=== PATIENT | female | born 1955 | race Caucasian/White ===

== ENCOUNTER 2019-01-18 16:03 | Outpatient (REF) | payer MEDICARE, OTHER, SELFPAY ==
--- NOTE | 2019-01-18 12:00 | PAPFT_PTH ---
PATIENT: Sena Marie LOC: [facility] U#:[id number] AGE/SX: 63/F ROOM: RE01/18/[address]: Tonya Hernandez MD : 1955 BED: DIS: 01/18/2019 SPEC #: [id number] RECD: 01/19/19 12:39 STATUS: SORAYA REQ #: [id number] JEANNE: 01/18/19 12:[address]: Tonya Hernandez DEPT: [facility] Cytology RECD BY: Julia Tran Tissues: 1 - CX/ENDOCX FOR PAP SMEARS Procedures: PAP THIN PREP/UVM Screening HPV DNA PROBE Comments: [id number]
== END 2019-01-18 16:23 ==
LOC: LBN 16:03
PROVIDERS: PCP Family Medicine; Visit Provider Family Medicine
DX: Z12.4 Encounter for screening for malignant neoplasm of cervix (principal); Z11.51 Encounter for screening for human papillomavirus (HPV)
CPT/HCPCS: 88142; 87624

== ENCOUNTER 2019-01-27 02:38 | Outpatient (CLI) | payer MEDICARE, OTHER, SELFPAY ==
[2019-01-27 10:08] LABS: ALT 21 U/L (12-78); AST 18 U/L (15-37); Albumin 3.5 g/dL (3.4-5.0); Alkaline Phosphatase 122 U/L (46-116); BUN 13 mg/dL (7-18); Bilirubin, Total 0.6 mg/dL (0.2-1.0); CREATININE 0.85 mg/dL (0.55-1.02); Calcium 8.8 mg/dL (8.5-10.1); Calculated LDL 143; Chloride 105 mmol/L (98-107); Cholesterol 208 mg/dL (50-200); Glucose 95 mg/dL (70-100); HDL Cholesterol 50 mg/dL (40-60); Potassium 3.7 mmol/L (3.5-5.1); Sodium 142 mmol/L (136-145); Total Protein 6.8 g/dL (6.4-8.2); Triglyceride 77 mg/dL (30-150)
== END 2019-01-27 02:58 ==
PROVIDERS: PCP Family Medicine; Visit Provider Family Medicine
DX: R10.9 Unspecified abdominal pain (principal); R74.8 Abnormal levels of other serum enzymes
CPT/HCPCS: 36415; 80053; 80061; 83721

== ENCOUNTER 2019-01-30 01:39 | Outpatient (CLI) | payer MEDICARE, OTHER, SELFPAY ==
--- NOTE | 2019-01-30 16:30 | DI.MAMMO_ITS ---
SYMPTOM/DIAGNOSIS: SCREENING, Z12.31 MAMMOGRAMS: Mammograms were interpreted according to the usual protocol including computer analysis with CAD system, tomosynthesis and C view imaging. Comparison is made with exams from [id number]. The breasts are composed of fatty density tissue. Breast density, Category A. No suspicious masses or suspicious microcalcifications are seen. There has been no significant change. IMPRESSION: Category 1, negative mammogram. Yearly screening mammography is recommended. [facility] ASSESSMENT OF FINDINGS: Negative. Category 1. Patient will receive a letter notifying them of these results. BI-RAD category A. The breasts are almost entirely fatty.
== END 2019-01-30 01:59 ==
PROVIDERS: PCP Family Medicine; Visit Provider Family Medicine
DX: Z12.31 Encounter for screening mammogram for malignant neoplasm of breast (principal)
CPT/HCPCS: 77063; 77067

== ENCOUNTER 2019-02-27 00:43 | Outpatient (CLI) | payer MEDICARE, OTHER, SELFPAY ==
--- NOTE | 2019-02-27 07:16 | DI.US_ITS ---
SYMPTOMS/DIAGNOSIS: RUQ PAIN/POST PRANDIAL, NO RESPONSE TO PPI, R10.11 ABDOMINAL ULTRASOUND: Routine examination was performed. The aorta is of normal caliber. There inferior vena cava is unremarkable. The liver measures 16 cm in length. No hepatic masses are present. There are multiple mobile stones seen within the gallbladder. No gallbladder wall thickening or pericholecystic fluid is seen. There is a positive sonographic Haynes's sign. The common duct is within normal limits at .5 cm. The pancreas, spleen and kidneys are unremarkable. IMPRESSION: 1. Cholelithiasis. No biliary ductal dilatation. 2. Positive sonographic Haynes's sign.
== END 2019-02-27 01:03 ==
PROVIDERS: PCP Family Medicine; Visit Provider Family Medicine
DX: R10.11 Right upper quadrant pain (principal); K80.20 Calculus of gallbladder without cholecystitis without obstruction; R19.8 Other specified symptoms and signs involving the digestive system and abdomen
CPT/HCPCS: 76700

== ENCOUNTER → 2019-03-20 11:14 | Outpatient (BNVA) | payer MEDICARE, OTHER, SELFPAY | PROVIDERS: PCP Family Medicine; Referring Provider Family Medicine; Visit Provider Surgery | DX: K80.20 Calculus of gallbladder without cholecystitis without obstruction (principal) | CPT/HCPCS: 99204; 99214 ==

== ENCOUNTER 2019-04-04 06:14 | Day surgery (SDC) | payer MEDICARE, OTHER, SELFPAY ==
[2019-04-04] VITALS (9 sets, daily range): BP systolic 94–139; BP diastolic 45–82; PULSE 48–64; RESP 15–22; TEMP 36.1–36.6; O2SAT 93–97
[2019-04-04] MEDS: Lactated Ringers 1,000 ML 80 ML IV (06:36)
[2019-04-04] MEDS: ceFAZolin 2 GM/50 ML BAG IVPB (07:25)
--- NOTE | 2019-04-04 07:28 | W.PM.DSUDISC ---
Discharge Plan Disposition Patient Disposition: HOME Condition: Good Discharge Details Reason For Visit: Laparoscopic cholecystectomy Attending Provider: Radha Pulido Primary Care Provider: Tonya Hernandez Discharge Instructions Additional Instructions: May remove top dressing tomorrow and shower. The water can run over the steri strips. Call for any issues with increased pain, nausea, incision concerns Referrals: Radha Pulido MD [ [facility] STAFF PHYSICIAN] - (Return for postop appointment in 10-14 days) Activity:: Do not lift more than 15 pounds for two weeks Remove Dressings/Wound Care:: 24 hours Shower/Bathe:: 24 hours Diet:: Low fat for two weeks Discharge Orders Discharge Orders: Discharge Order (Routine); Ordered 04/04/19 Ordered By: Radha Pulido DS: Diagnosis Discharge Diagnosis (1) Cholelithiasis: Status: Acute (2) Status post laparoscopic cholecystectomy:
--- NOTE | 2019-04-04 08:00 | GB_PTH ---
PATIENT: Sena Marie LOC: [facility] U#:[id number] AGE/SX: 63/F ROOM: RE04/04/[address]: Radha Pulido MD : 1955 BED: DIS: 04/04/2019 SPEC #: [id number] RECD: 04/04/19 12:44 STATUS: SORAYA REQ #: [id number] JEANNE: 04/04/19 08:[address]: Radha Pulido DEPT: Surgical Specimen RECD BY: Julia Tran ENTERED: 04/04/19 12:44 SP TYPE: GB OTHR DR: Tonya Hernandez MD Tissues: 1 - GALLBLADDER Procedures: GROSS AND MICRO LEVEL 3 Comments: [id number]
[2019-04-04] MEDS: Bupivacaine 0.5% Pres-Free 30 ML VIAL (08:10)
[2019-04-04] MEDS: Ketorolac 15 MG/ML VIAL IVP (08:50)
[2019-04-04] MEDS: Droperidol 5 MG/2 ML VIAL 0.625 MG IVP (09:16)
--- NOTE | 2019-04-04 10:52 | ROE_ITS ---
REPORT OF OPERATIVE PROCEDURE DATE OF PROCEDURE April 04, 2019 PREOPERATIVE DIAGNOSIS Symptomatic cholelithiasis. POSTOPERATIVE DIAGNOSIS Symptomatic cholelithiasis. PROCEDURE Laparoscopic cholecystectomy. SURGEON Radha Pulido M.D. ANESTHESIA Local and General. INDICATIONS This is a 63-year-old woman who presented with right upper quadrant pain triggered by eating fatty fo ods. She had an ultrasound that showed gallstones. PROCEDURE DESCRIPTION The patient was placed supine on the operating table and under general anesthetic, she was prepped an d draped sterilely. A 5-mm incision was made just below and to the left of the umbilicus after injec ting local anesthetic. The abdomen entered under direct visualization using the 5-mm scope. A CO2 pne umoperitoneum was begun. She was placed in reverse Trendelenburg position. The epigastric and two lateral ports were placed after injecting local anesthetic under direct visual ization. The gallbladder was not acutely inflamed, but did have adhesions of omentum and duodenum to it. The fundus was pulled up over the liver and the adhesions carefully taken down with hook cautery. The infundibulum was retracted laterally and the peritoneum overlying the triangle Calot was dissect ed free with harrell cautery to reveal the cystic duct and artery. These were visualized going directly onto the gallbladder. The cystic duct was not dilated. It was palpated and no stones were noted withi n it. The common bile duct was visualized and avoided. The cystic duct was clipped twice distally an d once proximally. The cystic artery clipped twice proximally, once distally and then the structures divided. The gallbladder was dissected off the liver bed with hook cautery. A few small vascular bran ches in the gallbladder fossa were clipped. Once the gallbladder was removed, the operative site was inspected and it showed no bleeding or bile leak. The gallbladder was removed through the epigastric incision in an EndoCatch bag. The ports were removed under direct visualization with no evidence of bleeding. The CO2 was released from the umbilical port, which was then removed. The skin and all por t sites were closed with a #4-0 Monocryl subcuticular stitch. She tolerated the procedure well and wa s stable to recovery. CC: Tonya Hernandez M.D.
== END 2019-04-04 11:00 | disposition home or self-care (01) ==
PROVIDERS: PCP Family Medicine; Visit Provider Surgery
PROC: 0FT44ZZ Resection of Gallbladder, Percutaneous Endoscopic Approach (ICD-10-PCS; CPT 47562; principal; 2019-04-04 07:30)
DX: K80.10 Calculus of gallbladder with chronic cholecystitis without obstruction (principal); K82.8 Other specified diseases of gallbladder
CPT/HCPCS: 47562; 88304; J0690; J1100; J1790; J1885; J2405

== ENCOUNTER → 2019-04-13 08:48 | Outpatient (BNVA) | payer MEDICARE, OTHER, SELFPAY | PROVIDERS: PCP Family Medicine; Referring Provider Family Medicine; Visit Provider Surgery | DX: Z48.815 Encounter for surgical aftercare following surgery on the digestive system (principal); Z90.49 Acquired absence of other specified parts of digestive tract ==

== ENCOUNTER 2021-06-24 00:50 | Outpatient (CLI) | payer MEDICARE, OTHER, SELFPAY ==
--- NOTE | 2021-06-24 11:42 | DI.MAMMO_ITS ---
Exam(s) MAMMO SCREENING EXAM: MAMMO SCREENING CLINICAL HISTORY: screening,Z12.39 TECHNIQUE: Bilateral full field digital CC and MLO mammographic images were obtained with 3D tomosyn thesis and utilizing computer aided detection (CAD). COMPARISON: Available for comparison. FINDINGS: Masses/Architectural Distortion: None seen. Microcalcifications: No suspicious pleomorphic-type are seen. Skin Thickening/Nipple Retraction: None. IMPRESSION: 1. No significant interval change with no specific features of malignancy noted. 2. Unless there is more urgent need, screening mammography is recommended, as per [place] [employer] guidelines. BI-RADS Category 1 - Negative Breast Density - Category A - Almost entirely fatty Breast density category C or D implies that the patient has dense breast tissue. Dense breast tissue is very common and is not abnormal but dense breast tissue can make it harder to find cancer on a ma mmogram. Also, dense breast tissue may increase their breast cancer risk. This information about the result of the mammogram report was provided to the patient to raise their awareness. Use this report when you speak with the patient about their risks for breast cancer, which includes their family hist ory. At that time, you may recommend for more screening tests (Ultrasound or MRI) as they might be us eful based on their risk. A negative radiographic report should not delay biopsy if a dominant or clinically suspicious mass is present. Up to ten percent of cancers are not identified on mammography. A negative report may reinforce clinical impression. Adenosis and dense breasts may obscure an underlying neoplasm. False positive reports average 6 to 10%. Patient will receive a letter notifying them of these results.
== END 2021-06-24 01:10 ==
PROVIDERS: PCP Family Medicine; Visit Provider Family Medicine
DX: Z12.31 Encounter for screening mammogram for malignant neoplasm of breast (principal)
CPT/HCPCS: 77063; 77067

== ENCOUNTER 2022-06-15 03:22 | Outpatient (CLI) | payer MEDICARE, SELFPAY ==
[2022-06-15 09:17] LABS: Hemoglobin A1C 5.3 % (<5.7)
[2022-06-15 10:49] LABS: Anion Gap 8.4 mmol/L (3-11); BUN 15 mg/dL (7-18); CO2 27.6 mmol/L (21.0-32.0); CREATININE 0.9 mg/dL (0.55-1.02); Calcium 8.9 mg/dL (8.5-10.1); Calculated LDL 101 mg/dL (<100); Chloride 106 mmol/L (98-107); Cholesterol 164 mg/dL (<200); Estimated GFR 69.64 (mL/min/1.73m2); Glucose 101 mg/dL (74-106); HDL Cholesterol 52 mg/dL (40-60); Sodium 142 mmol/L (136-145); TSH (W/Ref FT4) 3.72 uIU/mL (0.36-3.74); Triglyceride 55 mg/dL (<150)
== END 2022-06-15 03:23 | disposition home or self-care (01) ==
LOC: LBO 03:22
PROVIDERS: PCP Nurse Practitioner Family; Visit Provider Nurse Practitioner Family
DX: E78.5 Hyperlipidemia, unspecified (principal); Z86.32 Personal history of gestational diabetes
CPT/HCPCS: 36415; 80048; 80061; 83036; 84443

== ENCOUNTER 2022-12-23 12:28 | Outpatient (CLI) | payer MEDICARE, SELFPAY ==
--- NOTE | 2022-12-23 | DI.RAD_ITS ---
Exam(s) XR CHEST 2V PA LATERAL EXAM: XR CHEST 2V PA LATERAL CLINICAL HISTORY: COUGH, R05.8, X 1 WEEK, ? RHONCOROUS SOUNDS IN RLL POSTERIOR, ? PNA TECHNIQUE: 2D digital imaging was performed. COMPARISON: CR RIGHT RIBS TO INCLUDE CXR from 04/24/2015 FINDINGS: HEART: Normal size. Aorta: Not dilated. PULMONARY VASCULATURE: Normal. LUNGS: Clear. PLEURAL SPACE: No pleural effusion or pneumothorax. BONE:Old right rib fractures. Degenerative changes in the spine. Mild scoliosis. IMPRESSION: No acute abnormality. DATA REPOSITORY: RADIATION DOSE DELIVERED:
== END 2022-12-23 12:48 ==
LOC: DI 12:28
PROVIDERS: PCP Nurse Practitioner Family; Visit Provider Physician Assistant Medical
DX: R05.3 Chronic cough (principal)
CPT/HCPCS: 71046

== ENCOUNTER → 2023-07-05 02:55 | Outpatient (CLI) | payer MEDICARE, SELFPAY ==
--- NOTE | 2023-07-05 08:15 | DI.DEXA_ITS ---
Exam(s) XR DEXA BONE DENSITY W/WO DESTINEE EXAM: XR DEXA BONE DENSITY W/WO DESTINEE CLINICAL HISTORY: osteoporosis screening, Z78.0, POSTMENOPAUSAL STATUS TECHNIQUE: Hologic Horizon C densitometer analysis of left hip, lumbar spine and left forearm. Lat eral survey image of the thoracic and lumbar spine. COMPARISON: No exams were available for comparison FINDINGS: Lateral view of the thoracic and lumbar spine shows no evidence of compression fractures. Degenera tive changes with prominent endplate osteophytes noted. Mild scoliosis. These findings could elevat e the bone mineral density measurements. Bone mineral density measurements of the lumbar spine correspond to a total T-score of 2.2, in the no rmal range. Bone mineral density measurements of the left hip correspond to a total T-score of 1.4 . The femoral neck T-score is 2.1, in the normal range.. Theleft forearm bone mineral density measurements correspond to a T-score of the distal 3rd of -0.7, in the normal range.. IMPRESSION: Normal bone mineral density.
--- NOTE | 2023-07-05 12:30 | DI.MAMMO_ITS ---
Exam(s) MAMMO SCREENING EXAM: MAMMO SCREENING CLINICAL HISTORY: screening, Z12.39 TECHNIQUE: Mammograms were interpreted according to the usual protocol including computer analysis w [employer] CAD system, tomosynthesis and C-view imaging. COMPARISON: 2014 through 2020 FINDINGS: The breasts are composed of mainly fatty density , Breast Density category A. No suspicious masses or suspicious microcalcifications are seen. No skin thickening or abnormal axillary lymph nodes are seen. There has been no significant change from prior exams. IMPRESSION: BI-RADS Category 1, Negative mammogram Yearly screening mammography is recommended. Breast Density - Category A, fatty density. A negative radiographic report should not delay biopsy if a dominant or clinically suspicious mass is present. Up to ten percent of cancers are not identified on mammography. A negative report may reinforce clinical impression. Adenosis and dense breasts may obscure an underlying neoplasm. False positive reports average 6 to 10%. Patient will receive a letter notifying them of these results.
== END ==
PROVIDERS: PCP Nurse Practitioner Family; Visit Provider Nurse Practitioner Family
DX: Z12.31 Encounter for screening mammogram for malignant neoplasm of breast (principal); Z78.0 Asymptomatic menopausal state; Z13.820 Encounter for screening for osteoporosis
CPT/HCPCS: 77063; 77067; 77080

== ENCOUNTER 2023-07-26 11:12 | Outpatient (CLI) | payer MEDICARE, SELFPAY ==
--- NOTE | 2023-07-26 11:00 | RT.EKG_ITS ---
APPROVED REPORT Exam: Resting ECG Reason for Exam: MA Patient Location: O HR:75 bpm ECG Measurements Heart Rate 75 AXIS GA 169 P 15 QRSd 88 QRS 10 QT 389 T 17 QTc 435 Conclusion Incomplete analysis due to missing data in precordial lead(s) Sinus rhythm...normal P axis, V-rate 50- 99 Missing lead(s): V3 Otherwise normal ECG
== END 2023-07-26 11:13 | disposition home or self-care (01) ==
LOC: DI.CM 11:12
PROVIDERS: PCP Nurse Practitioner Family; Visit Provider Nurse Practitioner Family
DX: R06.09 Other forms of dyspnea (principal)
CPT/HCPCS: 93010

== ENCOUNTER 2023-07-28 04:48 | Outpatient (CLI) | payer MEDICARE, SELFPAY ==
[2023-07-28 13:06] LABS: Abs Immature Grans 0.01 10^3/uL (0.0-0.06); Absolute Basophil Count 0.03 10^3/uL (0.0-0.2); Absolute Eosinophil Count 0.15 10^3/uL (0.0-0.7); Absolute Lymphocyte Count 0.82 10^3/uL (1.2-3.4); Absolute Monocyte Count 0.41 10^3/uL (0.1-0.8); Absolute Neutrophil Count 2.94 10^3/uL (1.2-6.7); Basophils % 0.7; Eosinophils % 3.4; Immature Grans % 0.2; Lymphocytes % 18.8; MCH 16.6 pg (27.0-33.0); MCHC 25.6 % (32.0-36.0); MCV 65 fL (80-95); MPV 9.5 fL (8.0-11.0); Monocytes % 9.4; Neutrophils % 67.5; Platelet Count 362 10^3/uL (130-400); RBC 3.19 10^6/uL (3.93-5.22); RDW 19.6 % (11.7-14.6); RDW-SD 45.5 fL; WBC 4.36 10^3/uL (4.4-10.8)
[2023-07-28 13:41] LABS: HCT 20.7 % (36.0-46.0); HGB 5.3 g/dL (11.2-15.7)
[2023-07-28 13:43] LABS: Diff Comment Diff Reviewed; Hypochromasia 3+; Microcytosis 3+
[2023-07-28 14:00] LABS: ALT 14 U/L (14-59); AST 9 U/L (15-37); Albumin 3.4 g/dL (3.4-5.0); Alkaline Phosphatase 103 U/L (46-116); Anion Gap 9.8 mmol/L (3-11); BUN 19 mg/dL (7-18); Bilirubin, Total 0.4 mg/dL (0.2-1.0); CO2 25.2 mmol/L (21.0-32.0); CREATININE 0.9 mg/dL (0.55-1.02); Calcium 8.9 mg/dL (8.5-10.1); Chloride 102 mmol/L (98-107); Glucose 119 mg/dL (74-106); Potassium 4.1 mmol/L (3.5-5.1); Sodium 137 mmol/L (136-145); TSH (W/Ref FT4) 2.46 uIU/mL (0.36-3.74); Total Protein 7.1 g/dL (6.4-8.2)
[2023-07-28 15:49] LABS: Lab Add On Test DONE
[2023-07-28 16:04] LABS: Reticulocyte 1.5 % (0.5-2.4)
[2023-07-28 16:12] LABS: Iron 11 ug/dL (50-170); Total Iron Binding Capacity 438 ug/dL (250-450); Transferrin Sat 3 % (15-50)
[2023-07-28 16:40] LABS: Ferritin 10 ng/mL (8-252); Folate 16.4 ng/mL (8.6-20.0); Vitamin B12 151 pg/mL (193-986)
== END 2023-07-28 04:49 | disposition home or self-care (01) ==
LOC: LBO 04:48
PROVIDERS: PCP Nurse Practitioner Family; Visit Provider Nurse Practitioner Family
DX: R06.09 Other forms of dyspnea (principal); D64.9 Anemia, unspecified
CPT/HCPCS: 36415; 80053; 82607; 82728; 82746; 83540; 83550; 84443; 85025; 85045

== ENCOUNTER 2023-07-28 14:06 | Emergency (ER) | payer MEDICARE, SELFPAY ==
[2023-07-28] VITALS (51 sets, daily range): BP systolic 138–171; BP diastolic 45–63; PULSE 71–95; RESP 14–27; TEMP 36.6–37; O2SAT 75–100
--- NOTE | 2023-07-28 15:07 | W.ED.GENAD ---
Discharge Plan Disposition Patient Disposition: Home Condition: Stable Discharge Details Clinical Impression: Symptomatic anemia Primary Care Provider: Jocelyn Hodge ED Provider: Kaleb Waggoners and New Rx's Prescriptions: Continued ICaps AREDS2 250 mg-200 unit -12.5 mg-1 mg capsule 1 cap PO BID Discharge Instructions Additional Instructions: You were seen in the ED for symptomatic anemia and received 2 units of blood which should improve your symptoms. You will need to follow-up with primary care to further evaluate the reason why you are anemic. Please contact them in the morning. Return to the ED if you develop any further episodes of syncope, worsening shortness of breath, chest pain or pressure, black or bloody stool. Referrals: Jocelyn Hodge, [employer]ILER[employer]IC [Primary Care Provider] - Medical Decision Making Patient presenting to ED with symptomatic anemia found after visiting PCP earlier this week because of increasing dyspnea on exertion, lightheadedness, syncope. Blood work drawn today reveals a hemoglobin of 5.3 and hematocrit of 20.7. Patient appears to have microcytic indices which would suggest possibility of iron deficiency. It would appear primary care has ordered another round of laboratory studies which lab has asked us to draw here. Patient looks well otherwise and has normal vital signs at rest. Discussed with patient risk and benefit of transfusion. She has consented to transfusion and we will give 2 units of blood here in the emergency department. 20:15 -patient has tolerated 2 units packed red cell transfusion without issues. Primary care has initiated anemia workup including vitamin and iron levels. Patient will be referred back to primary care for further evaluation and management. Return precautions provided. Medical Records Medical records reviewed: Yes I reviewed the patient's medical records. Lab Data Lab results reviewed: Yes I reviewed the patient's lab results. HPI General Mode of arrival: ambulatory. Date/Time Provider Initiated Documentation: 07/28/23 14:50. Limitations to Documentation: no limitations. Information obtained by: patient. HPI Narrative: Patient presents to ED with symptomatic anemia after being called by PCP coverage with abnormal hemoglobin. Patient has noticed some shortness of breath since the spring after she recovered from a respiratory infection. However, she only noticed dyspnea on exertion with significant exertion. Over the last few weeks she has had dyspnea with exertion of any kind, lightheadedness and dizziness, syncopal event last Wednesday while she was out grocery shopping. She had a controlled fall as her was there with her. Did not seek treatment at that time but contacted primary care and was seen in the office on the . After that visit a slew of tests including blood work, CT scan, echo, stress test was ordered. She had blood testing done today and was notified of a very low hemoglobin and told to come to the ED. Patient denies having any type of chest pain or pressure at any time. She denies any black or dark stool. She denies any abdominal pain, weight loss. Related Data Home Medications Medication Instructions Recorded Confirmed vit C 250 mg-vit E 200 unit-zinc 1 cap PO BID 06/05/22 07/28/23 ox 12.5 xi-pxwmxr-itnpkb-zeax capsule (ICaps AREDS2) Allergies Allergy/AdvReac Type Severity Reaction Status Date / Time tetanus toxoid, adsorbed Allergy Severe arm Verified 07/28/23 16:26 swelling, red streak down arm hydrocodone AdvReac Severe ? Verified 07/28/23 16:26 HYPOTENSION oxycodone AdvReac Intermediate NAUSEA/VOMI Verified 07/28/23 16:26 TING General Stated Complaint: GenMedical JOHAN: 3 Review of Systems Narrative: Per HPI PFSH All Active Problems (Updated 07/28/23 @ 20:12 by Kaleb Waggoner MD) Symptomatic anemia (Acute) MA (dyspnea on exertion) (Acute) Sigmoid diverticulosis (Chronic) Medical History Hyperlipidemia Macular degeneration of both eyes Rosacea Surgical History S/P colonoscopy S/P bunionectomy History of bilateral tubal ligation S/P anterior colporrhaphy Status post right knee replacement Status post left knee replacement Status post laparoscopic cholecystectomy (04/04/19) History of nasal septoplasty Family History Mother , 62 Heart disease Myocardial infarction Father , 80 Heart disease Sister Hypothyroidism Brother Essential hypertension Hyperlipidemia Brother Hyperlipidemia Maternal Grandfather , 54 Heart disease Paternal Grandfather , 79 Prostate cancer Maternal Grandmother , 96 No problems noted. Paternal Grandmother , 83 Diabetes Heart disease Son Asthma Daughter Asthma Daughter No problems noted. Brother No problems noted. Social History Smoking/Tobacco Use Status: Never Second Hand Exposure: Yes Smoking risk assessment performed?: Yes Alcohol Intake: current Alcohol Intake frequency: holidays/special occasions only Alcohol type: hard liquor Drug use: Never Substance use type: does not use Details: couple months ago Household members: spouse Housing: house Communication Needs: None Do you need help understanding health information?: Never Pets and animals: Yes Pets and animals: cat(s) Sexually active: Yes Do you think of yourself as: straight/heterosexual Current gender identity: male What is your relationship status?: How often do you talk on the phone with friends or family?: three or more times per week How often do you get together with friends or relatives?: three or more times per week How often do you attend hoahaoism or moravian services?: 1-3 times per year Do you belong to any clubs or organized social groups?: yes Panel score (0-1 are the most socially isolated patients): 3 What type of physical activity do you participate in: walking Duration: 15-30 minutes/day Frequency: 5-6 times per week Arianna/Hoahaoism: [employer] Special arianna needs: No Seatbelt use: always Drive intox or ride w/intox straight truck driver: No Do you feel safe at home: Yes Do you feel safe in your relationship?: Yes Exam Narrative Exam Narrative: Const: WDWN elderly female in NAD. HEENT: NC/AT. Normal facial exam. Neck: Supple. Trachea midline. Lungs: Normal respiratory effort. Lungs are clear. Cor: RRR with murmur. Good radial pulses. GI: Soft. NT/ND. No guarding or rebound. Neuro: A+O x 3. Normal speech, mentation, gait. Cranial nerves II - XII grossly intact. No gross motor or sensory deficit. Ext: No C/C/E. Skin: Warm and dry without rash. Course Vital Signs Vital signs: Vital Signs Temperature 98.1 F 07/28/23 14:15 Pulse 95 H 07/28/23 14:15 Respiratory Rate 18 07/28/23 14:15 Blood Pressure 164/63 H 07/28/23 14:15 Pulse Oximetry 100 07/28/23 14:15 Temperature 98.1 F 07/28/23 14:15 Temperature Source Tympanic 07/28/23 14:15 Pulse 95 H 07/28/23 14:15 Respiratory Rate 18 07/28/23 14:15 Blood Pressure 164/63 H 07/28/23 14:15 Pulse Oximetry 100 07/28/23 14:15 Oxygen Delivery Method Room Air 07/28/23 14:15 Oxygen Flow Rate 0 07/28/23 14:15
--- NOTE | 2023-07-28 19:26 | NUR.NOTE ---
Nursing Note: RN re-assessed LS during blood transfusion; LS clear bilaterally.
== END 2023-07-28 20:25 | disposition home or self-care (01) ==
PROVIDERS: Emergency Provider Emergency Medicine; PCP Nurse Practitioner Family
DX: R06.02 Shortness of breath (principal); D64.89 Other specified anemias; E78.5 Hyperlipidemia, unspecified
CPT/HCPCS: 36415; 36430; 86850; 86900; 86901; 86920; 99284; 99283; P9016

== ENCOUNTER 2023-08-06 02:09 | Outpatient (CLI) | payer MEDICARE, SELFPAY ==
[2023-08-06 14:07] LABS: HCT 26.9 % (36.0-46.0); HGB 7.2 g/dL (11.2-15.7); MCH 18.6 pg (27.0-33.0); MCHC 26.8 % (32.0-36.0); MCV 69 fL (80-95); MPV 8.5 fL (8.0-11.0); Platelet Count 305 10^3/uL (130-400); RDW 23.4 % (11.7-14.6); RDW-SD 57.7 fL; WBC 4.94 10^3/uL (4.4-10.8)
[2023-08-06 14:36] LABS: RBC 3.88 10^6/uL (3.93-5.22)
== END 2023-08-06 02:10 | disposition home or self-care (01) ==
LOC: LBO 02:10
PROVIDERS: PCP Nurse Practitioner Family; Visit Provider Nurse Practitioner Family
DX: D50.9 Iron deficiency anemia, unspecified (principal)
CPT/HCPCS: 36415; 85027

== ENCOUNTER → 2023-09-02 09:42 | Outpatient (BNVA) | payer MEDICARE, SELFPAY | PROVIDERS: PCP Nurse Practitioner Family; Referring Provider Nurse Practitioner Family; Visit Provider Student in an Organized Health Care Education/Training Program | DX: D50.9 Iron deficiency anemia, unspecified (principal) | CPT/HCPCS: 99214 ==

== ENCOUNTER 2023-09-03 01:16 | Outpatient (CLI) | payer MEDICARE, SELFPAY ==
[2023-09-03 11:33] LABS: Abs Immature Grans 0.04 10^3/uL (0.0-0.06); Absolute Basophil Count 0.03 10^3/uL (0.0-0.2); Absolute Eosinophil Count 0.11 10^3/uL (0.0-0.7); Absolute Lymphocyte Count 1.15 10^3/uL (1.2-3.4); Absolute Monocyte Count 0.27 10^3/uL (0.1-0.8); Absolute Neutrophil Count 3.04 10^3/uL (1.2-6.7); Basophils % 0.6; Eosinophils % 2.4; HCT 26.7 % (36.0-46.0); HGB 7.1 g/dL (11.2-15.7); Immature Grans % 0.9; Lymphocytes % 24.8; MCH 19.4 pg (27.0-33.0); MCHC 26.6 % (32.0-36.0); MCV 73 fL (80-95); MPV 8.3 fL (8.0-11.0); Monocytes % 5.8; Neutrophils % 65.5; RBC 3.66 10^6/uL (3.93-5.22); RDW 22.7 % (11.7-14.6); RDW-SD 60.1 fL; WBC 4.64 10^3/uL (4.4-10.8)
[2023-09-03 11:48] LABS: Anisocytosis 2+; Diff Comment Diff Reviewed; Hypochromasia 2+; Microcytosis 2+; Platelet Count 269 10^3/uL (130-400); Polychromasia Present
[2023-09-03 11:49] LABS: Poikilocytes 2+
[2023-09-03 12:30] LABS: Ferritin 14 ng/mL (8-252); Vitamin B12 378 pg/mL (193-986)
== END 2023-09-03 01:17 | disposition home or self-care (01) ==
PROVIDERS: PCP Nurse Practitioner Family; Visit Provider Nurse Practitioner Family
DX: D50.9 Iron deficiency anemia, unspecified (principal); E53.8 Deficiency of other specified B group vitamins
CPT/HCPCS: 36415; 82607; 82728; 85025

== ENCOUNTER 2023-09-14 07:38 | Day surgery (SDC) | payer MEDICARE, SELFPAY ==
--- NOTE | 2023-09-14 07:47 | W.ANESPRE ---
General Info Date of Service Date Performed: 09/14/23 Height: 5 ft 6 in Weight: 95.708 kg Body Mass Index (BMI): 34.0 Surgical Procedure: Operation Date: 09/14/23 09:20 Proposed Procedure Side Surgeon p Colonoscopy/Gastroscopy Jonathan Lange MD Meds Allergies and Home Medications Allergies Allergy/AdvReac Type Severity Reaction Status Date / Time tetanus toxoid, adsorbed Allergy Severe arm Verified 09/02/23 10:06 swelling, red streak down arm hydrocodone AdvReac Severe ? Verified 09/02/23 10:06 HYPOTENSION oxycodone AdvReac Intermediate NAUSEA/VOMI Verified 09/02/23 10:06 TING Home Medication Medication Instructions Recorded vit C 250 mg-vit E 200 unit-zinc 1 cap PO BID 06/05/22 ox 12.5 ld-lzmxmb-jmvvwa-zeax capsule (ICaps AREDS2) ferrous sulfate 325 mg (65 mg 325 mg PO DAILY #90 tabs 08/05/23 iron) tablet,delayed release cyanocobalamin (vitamin B-12) 1,000 mcg PO DAILY #90 caps 08/18/23 1,000 mcg capsule bisacodyl 5 mg tablet,delayed 5 mg PO ONCE colonscopy bowel prep 09/02/23 release (Dulcolax (bisacodyl)) #4 tabs polyethylene glycol 3350 17 238 g PO ONCE colonoscopy prep 09/02/23 gram/dose oral powder #238 grams Current Visit Medications: Current Medications Generic Name Dose Route Start Last Admin Trade Name Freq PRN Reason Stop Dose Admin Ringer's Solution 1,000 mls @ 80 mls/hr 09/14/23 06:00 IV 10/13/23 23:59 INFUSION YAZAN IV Miscellaneous Supplies 1 each 09/14/23 06:00 Iv Access IV 10/13/23 23:59 DIRECTED YAZAN Sodium Chloride 0 ml 09/14/23 06:00 Normal Saline Flush 10 Ml Syr IV 10/13/23 23:59 PRN PRN Sodium Chloride 0 ml 09/14/23 06:00 Normal Saline 10 Ml Vial IJ 10/13/23 23:59 DIRECTED PRN Sterile Water 0 ml 09/14/23 06:00 Water,Injection,Sterile 10 Ml Vial IJ 10/13/23 23:59 DIRECTED PRN PFSH Active Problems Active Problems: Problem Status Onset Code Iron deficiency anemia D50.9 Vitamin B12 deficiency E53.8 MA (dyspnea on exertion) R06.09 Sigmoid diverticulosis K57.30 Medical History Medical History Hyperlipidemia Macular degeneration of both eyes Rosacea Surgical History Surgical History S/P colonoscopy S/P bunionectomy History of bilateral tubal ligation S/P anterior colporrhaphy Status post right knee replacement Status post left knee replacement Status post laparoscopic cholecystectomy (04/04/19) History of nasal septoplasty Tobacco Smoking/Tobacco Use Status: Never Passive smoking exposure: No Second hand exposure: Yes Alcohol Alcohol Intake: current Alcohol intake frequency: holidays/special occasions only Alcohol type: hard liquor Substance Use Substance use: Never Substance use type: does not use Details: couple months ago Vital Signs and Lab Results Lab Results Blood Type / Crossmatch: No Data to Display Complete Blood Count: White Blood Count 4.64 10^3/uL (4.4-10.8) 09/03/23 11:29 Red Blood Count 3.66 10^6/uL (3.93-5.22) L 09/03/23 11:29 Hemoglobin 7.1 g/dL (11.2-15.7) L 09/03/23 11:29 Hematocrit 26.7 % (36.0-46.0) L 09/03/23 11:29 Platelet Count 269 10^3/uL (130-400) 09/03/23 11:29 Complete Metabolic Panel: No Data to Display Liver Function Panel: No Data to Display Coagulation Panel: No Data to Display Cardiac Panel: No Data to Display Arterial Blood Gas: No Data to Display Venous Blood Gas: No Data to Display Pancreas Panel: No Data to Display Thyroid Panel: No Data to Display Infectious Disease: No Data to Display Blood Cultures: No Data to Display Toxicology Panel: No Data to Display Anesthesia Assessment and Plan Anesthesia History Personal History: No History of Anesthesia Complications Family History: No Family History of Anesthesia Complications Exercise Tolerance Exercise Tolerance: Metabolic Equivalents>4 Pertinent Negatives Pertinent Negatives: No Symptoms of GERD Cardiac & Pulmonary Exam Cardiac Exam: Normal S1/S2 Heart Sounds Pulmonary Exam: Clear Bilateral Breath Sounds Implantable Cardiac Device Does patient have a Pacemaker or an ICD?: No Airway Exam Known Difficult Airway: No Mallampati Class: 2 Mouth Opening: Normal (> 3cm) Thyromental Distance: Greater than 3 cm Neck Range of Motion: Full ROM Neck Circumference: Normal Teeth Condition: Normal Dentition ASA Classification ASA Score: ASA 2 Emergency Case?: No NPO Status NPO Status: NPO Clears >2 hours, Solids >8 hours Anesthesia Plan Resuscitation Status: Full Code Anesthesia Technique: General Anesthesia Airway Planned: Natural Airway Monitors Used: Standard Monitors
[2023-09-14 07:53] VITALS: BMI 34.0
[2023-09-14] MEDS: Lactated Ringers 1,000 ML 80 ML IV (07:58)
[2023-09-14 08:03] VITALS: BP 153/74; PULSE 84; RESP 20; TEMP 36.1; O2SAT 100
--- NOTE | 2023-09-14 08:41 | STOM_PTH ---
PATIENT: Sena Marie LOC: [facility] U#:[id number] AGE/SX: 67/F ROOM: RE09/14/[address]: Jonathan Lange : 1955 BED: DIS: 09/14/2023 SPEC #: [id number] RECD: 09/14/23 11:30 STATUS: SORAYA TONY #: [id number] JEANNE: 09/14/23 08:[address]: Jonathan Lange DEPT: Surgical Specimen RECD BY: Julia Tran ENTERED: 09/14/23 11:31 SP TYPE: STOMACH OTHR DR: Jcoelyn Hodge, POLITICAL ANTHROPOLOGIST Tissues: 1 - STOMACH BIOPSY 2 - STOMACH BIOPSY 3 - ESOPHAGUS BIOPSY 4 - ESOPHAGUS BIOPSY 5 - BIOPSY BOWEL Procedures: GROSS AND MICRO LEVEL 4 IMMUNOPEROXIDASE STAIN Comments: [id number]
[2023-09-14 09:09] VITALS: BP 120/65; PULSE 66; RESP 16; TEMP 36.7; O2SAT 97
--- NOTE | 2023-09-14 09:11 | W.ANESPOSTOP ---
Postoperative Evaluation Date, Time and Location Date Performed: 09/14/23 Time Performed: 09:11 Patient Location: Day Surgery Unit Vital Signs Most Recent Imported Vital Signs: Most Recent Vital Signs Temp Pulse Resp BP Pulse Ox 36.7 C 66 16 120/65 97 09/14/23 09:09 09/14/23 09:09 09/14/23 09:09 09/14/23 09:09 09/14/23 09:09 Pain Score Most Recent Pain Score: Most Recent Pain Score Pain Level 0 09/14/23 09:09 Assessment Mental Status: Awake (Alert & Oriented to Patient Baseline) Airway and Respiratory Function: Patent airway with normal (patient baseline) respiratory exam Cardiovascular Function: Hemodynamically Stable Hydration Status: Adequately Hydrated Nausea & Vomiting: No Nausea or Vomiting Pain: Pt. Denies Any Pain Peripheral Nerve Block: Patient did not receive a nerve block
--- NOTE | 2023-09-14 09:15 | W.PM.ENDDOP ---
Date of service: 09/14/23 Time of Service: 09:00 Endoscopy Report PROCEDURE DESCRIPTION: PROCEDURES PERFORMED: 1. EGD with biopsies PREOPERATIVE DIAGNOSIS: Anemia POSTOPERATIVE DIAGNOSIS: Gastric polyps, Moderate (3cm) Type 3 paraesophageal hernia, LA Grade B Esophagitis, Silent GERD SURGEON: Rivera Lange MD INDICATION FOR PROCEDURE: 67 yo woman with anemia of unknown etiology. No foregut symptoms. FINDINGS: D2/D3 = normal D1/bulb = normal - no ulcers or inflammation Pylorus = normal Antrum = normal appearance, no ulcers, cold forceps biopsies were taken to rule out H. pylori routinely Body = normal appearance, biopsies taken with cold forceps technique routinely Fundus = normal, a few benign-appearing polyps Cardia = normal Hiatus = moderate(3cm) type3 PEH hernia Distal esophagus = Irritated with multiple mucosal breaks circumferentially. Cold forceps bx taken. No visible Schmid's. Mid esophagus = normal Proximal esophagus/hypopharynx/vocal cords = normal SURVEILLANCE-INTERVAL/FOLLOW-UP: anemia might be 2nd to type3 PEH and esophagitis. Likely silent GERD since patient denies Sx. I'll start her on PPI and carafate therapy. Specimens: Yes EBL: Minimal COMPLICATIONS: None Procedure in detail: The patient gave written consent and was in agreement with the indications, the potential risks as well as the benefits of the procedure. The patient was taken to the endoscopy suite and laid on their left side. Anesthesia was given which was tolerated well. We performed a timeout and we are in agreement I started the procedure. A well-lubricated endoscope was gently and carefully advanced down the esophagus, into the stomach the scope was and through the pylorus into the duodenum. The scope was then slowly withdrawn with the above-noted findings/interventions. The patient tolerated the procedure well and was then turned for colonoscopy (see separate procedure note).
--- NOTE | 2023-09-14 09:16 | PDOC.DSDIS_ITS ---
Date of service: 09/14/23 Time of Service: 09:16 Discharge Plan Disposition Patient Disposition: Home Condition: Good Discharge Details Attending Provider: Jonathan Lange Primary Care Provider: Jocelyn Hodge Home Meds and New Rx's Prescriptions: No Action ICaps AREDS2 250 mg-200 unit -12.5 mg-1 mg capsule 1 cap PO BID ferrous sulfate 325 mg (65 mg iron) tablet,delayed release (DR/EC) 325 mg PO DAILY Qty: 90 3RF polyethylene glycol 3350 17 gram/dose powder 238 g PO ONCE Qty: 238 0RF Rx Instructions: take per colonoscopy instructions bisacodyl [Dulcolax (bisacodyl)] 5 mg tablet,delayed release (DR/EC) 5 mg PO ONCE Qty: 4 0RF Rx Instructions: take per colonoscopy instructions cyanocobalamin (vitamin B-12) 1,000 mcg capsule 1,000 mcg PO DAILY Qty: 90 3RF Discharge Instructions Additional Instructions: FINDINGS: On upper endoscopy some irritation and inflammation was found at the bottom of your esophagus. This is probably secondary to multiple factors including dietary factors, being overweight as well as the presence of a hiatal hernia and acid reflux. This may be the reason for your anemia. In your stomach, some polyps were found. These are typically completely benign and nothing to worry about. On your colon, no polyps were found. No inflammation was seen. You do have di verticular disease throughout your colon which is extremely common, benign and nothing needs to be done about it. Mild internal hemorrhoids were noted. You should do another colonoscopy in 10 years. Stand Alone Forms: Colonoscopy Post Instructions Activity:: Activity as Tolerated Diet:: As Tolerated
--- NOTE | 2023-09-14 09:16 | W.COLOREPORT ---
Date of service: 09/14/23 Time of Service: 09:05 Colonoscopy Report Procedure Description: PROCEDURES PERFORMED: 1. Colonoscopy with cold forceps biopsy PREOPERATIVE DIAGNOSIS: Surveillance colonoscopy, anemia POSTOPERATIVE DIAGNOSIS: Pandiverticulosis, grade 1 internal hemorrhoids SURGEON: Rivera Lange MD INDICATION for procedure: The patient is a 67-year-old woman with new?onset, asymptomatic anemia of unknown etiology. Has not seen any bleeding. No family history of colon cancer. Previous colonoscopy 8 years ago reportedly normal. FINDINGS: The terminal ileum looked normal. I took biopsies of it to confirm considering her anemia diagnosis. No polyps were found, and no lesions or inflammation were seen anywhere. There are diverticular changes throughout the entire colon, most severe in the sigmoid colon, but no active diverticulitis and no stricture or fibrosis such that would explain chronic bleeding. Grade 1 internal hemorrhoids noted on retroflexion. SURVEILLANCE interval/FOLLOW-UP: Overall, no findings on colonoscopy which would explain chronic anemia unless she is having diverticular bleeding, but one would expect to see blood visibly at some point rendering this likely to NOT be the explanation. A 10-year follow-up from a colorectal cancer surveillance standpoint should be adequate. SPECIMENS: yes EBL: Minimal COMPLICATIONS: None QUALITY of prep: Excellent Procedure in detail: The patient gave written consent and was in agreement with the indications, the potential risks as well as the benefits of the procedure. She was turned from upper endoscopy (see separate procedure note) and I started the colonoscopy portion of the examination. Digital rectal and visual examination was performed and grossly within normal limits. A well-lubricated flexible colonoscope was then introduced and passed without any notable difficulty all the way to the cecum identified by the ileocecal valve and the appendiceal orifice. The terminal ileum looked normal. The scope was then slowly withdrawn with the above-noted findings. The patient tolerated the procedure well and was taken to the PACU in hemodynamically stable condition.
[2023-09-14 09:35] VITALS: BP 119/61; PULSE 65; RESP 16; TEMP 36.5; O2SAT 96
== END 2023-09-14 10:15 | disposition home or self-care (01) ==
PROVIDERS: PCP Nurse Practitioner Family; Visit Provider Student in an Organized Health Care Education/Training Program
PROC: (CPT 45380; principal; 2023-09-14 09:15)
DX: D50.9 Iron deficiency anemia, unspecified (principal); K31.7 Polyp of stomach and duodenum; K44.9 Diaphragmatic hernia without obstruction or gangrene; K21.00 Gastro-esophageal reflux disease with esophagitis, without bleeding; K57.30 Diverticulosis of large intestine without perforation or abscess without bleeding; K64.0 First degree hemorrhoids; K22.89 Other specified disease of esophagus
CPT/HCPCS: 45380; 43239; 00123; 88305; 88361; J2001; J2704

== ENCOUNTER 2023-09-21 04:35 | Outpatient (CLI) | payer MEDICARE, SELFPAY ==
[2023-09-21 12:09] LABS: Abs Immature Grans 0.01 10^3/uL (0.0-0.06); Absolute Basophil Count 0.03 10^3/uL (0.0-0.2); Absolute Lymphocyte Count 0.72 10^3/uL (1.2-3.4); Absolute Monocyte Count 0.32 10^3/uL (0.1-0.8); Absolute Neutrophil Count 2.34 10^3/uL (1.2-6.7); Basophils % 0.9; Eosinophils % 2.8; HGB 7.4 g/dL (11.2-15.7); Immature Grans % 0.3; Lymphocytes % 20.5; MCH 19.8 pg (27.0-33.0); MCHC 27.4 % (32.0-36.0); MCV 72 fL (80-95); MPV 9.2 fL (8.0-11.0); Monocytes % 9.1; Neutrophils % 66.4; Platelet Count 265 10^3/uL (130-400); RBC 3.74 10^6/uL (3.93-5.22); RDW 20.4 % (11.7-14.6); RDW-SD 53.7 fL; Reticulocyte 0.9 % (0.5-2.4); WBC 3.52 10^3/uL (4.4-10.8)
[2023-09-21 12:28] LABS: Anisocytosis 1+; Diff Comment RBC Morph Reviewed; Hypochromasia 1+; Microcytosis 1+; Polychromasia Present
[2023-09-21 12:31] LABS: Iron 16 ug/dL (50-170); Total Iron Binding Capacity 433 ug/dL (250-450)
[2023-09-21 12:49] LABS: ALT 19 U/L (14-59); AST 13 U/L (15-37); Albumin 3.2 g/dL (3.4-5.0); Alkaline Phosphatase 107 U/L (46-116); Anion Gap 9.1 mmol/L (3-11); BUN 15 mg/dL (7-18); Bilirubin, Total 0.4 mg/dL (0.2-1.0); CO2 26.9 mmol/L (21.0-32.0); CREATININE 0.9 mg/dL (0.55-1.02); Calcium 9.1 mg/dL (8.5-10.1); Chloride 105 mmol/L (98-107); Ferritin 24 ng/mL (8-252); Folate 12.5 ng/mL (8.6-20.0); Glucose 102 mg/dL (74-106); Potassium 3.9 mmol/L (3.5-5.1); Sodium 141 mmol/L (136-145); Total Protein 7.4 g/dL (6.4-8.2); Vitamin B12 452 pg/mL (193-986)
[2023-09-22 08:26] LABS: Transferrin 329 mg/dL (201-352)
== END 2023-09-21 04:36 | disposition home or self-care (01) ==
LOC: LBO 04:35
PROVIDERS: PCP Nurse Practitioner Family; Visit Provider Nurse Practitioner Family
DX: D50.9 Iron deficiency anemia, unspecified (principal); E53.8 Deficiency of other specified B group vitamins
CPT/HCPCS: 36415; 80053; 82607; 82728; 82746; 83540; 83550; 84466; 85025; 85045

== ENCOUNTER → 2023-10-13 13:20 | Outpatient (BNVA) | payer MEDICARE, SELFPAY | PROVIDERS: PCP Nurse Practitioner Family; Referring Provider Nurse Practitioner Family; Visit Provider Student in an Organized Health Care Education/Training Program | DX: D50.9 Iron deficiency anemia, unspecified (principal); K44.9 Diaphragmatic hernia without obstruction or gangrene | CPT/HCPCS: 99214 ==

== ENCOUNTER 2023-10-20 04:51 | Outpatient (CLI) | payer MEDICARE, SELFPAY ==
[2023-10-20 12:22] LABS: Abs Immature Grans 0.01 10^3/uL (0.0-0.06); Absolute Basophil Count 0.03 10^3/uL (0.0-0.2); Absolute Eosinophil Count 0.15 10^3/uL (0.0-0.7); Absolute Lymphocyte Count 0.89 10^3/uL (1.2-3.4); Absolute Monocyte Count 0.35 10^3/uL (0.1-0.8); Absolute Neutrophil Count 3.57 10^3/uL (1.2-6.7); Basophils % 0.6; HCT 30.5 % (36.0-46.0); HGB 8.6 g/dL (11.2-15.7); Immature Grans % 0.2; Lymphocytes % 17.8; MCH 21.3 pg (27.0-33.0); MCHC 28.2 % (32.0-36.0); MCV 76 fL (80-95); Neutrophils % 71.4; Platelet Count 260 10^3/uL (130-400); RBC 4.04 10^6/uL (3.93-5.22); RDW 20.2 % (11.7-14.6); RDW-SD 54.7 fL
[2023-10-20 12:38] LABS: Anisocytosis 2+; Diff Comment RBC Morph Reviewed
[2023-10-20 13:29] LABS: Ferritin 15 ng/mL (8-252); Vitamin B12 310 pg/mL (193-986)
[2023-10-20 13:45] LABS: Iron 39 ug/dL (50-170); Total Iron Binding Capacity 390 ug/dL (250-450)
[2023-10-21 10:18] LABS: Hepatitis C Ab w Rflx HCV PCR Negative (Negative)
[2023-10-21 10:41] LABS: Transferrin 321 mg/dL (201-352)
== END 2023-10-20 04:52 | disposition home or self-care (01) ==
LOC: LBO 04:51
PROVIDERS: PCP Nurse Practitioner Family; Visit Provider Nurse Practitioner Family
DX: D50.9 Iron deficiency anemia, unspecified (principal); E53.8 Deficiency of other specified B group vitamins
CPT/HCPCS: 36415; 86803; 82607; 82728; 82746; 83540; 83550; 84466; 85025; 85045

== ENCOUNTER 2023-12-23 01:14 | Outpatient (CLI) | payer MEDICARE, SELFPAY ==
[2023-12-23 13:42] LABS: HGB 12.6 g/dL (11.2-15.7); MCH 26.6 pg (27.0-33.0); MCHC 31.5 % (32.0-36.0); MCV 84 fL (80-95); Platelet Count 230 10^3/uL (130-400); RBC 4.74 10^6/uL (3.93-5.22); RDW-SD 69.1 fL; Reticulocyte 0.9 % (0.5-2.4); WBC 4.21 10^3/uL (4.4-10.8)
[2023-12-23 14:36] LABS: Iron 75 ug/dL (50-170); Total Iron Binding Capacity 358 ug/dL (250-450); Transferrin Sat 21 % (15-50)
[2023-12-23 14:40] LABS: Ferritin 87 ng/mL (8-252)
== END 2023-12-23 01:15 | disposition home or self-care (01) ==
LOC: LBO 01:15
PROVIDERS: PCP Nurse Practitioner Family; Visit Provider Nurse Practitioner Family
DX: D50.9 Iron deficiency anemia, unspecified (principal)
CPT/HCPCS: 36415; 85027; 82728; 83540; 83550; 85045

== ENCOUNTER 2024-03-24 01:17 | Outpatient (CLI) | payer MEDICARE, SELFPAY ==
[2024-03-24 12:25] LABS: Absolute Basophil Count 0.04 10^3/uL (0.0-0.2); Absolute Eosinophil Count 0.18 10^3/uL (0.0-0.7); Absolute Lymphocyte Count 0.84 10^3/uL (1.2-3.4); Absolute Monocyte Count 0.31 10^3/uL (0.1-0.8); Absolute Neutrophil Count 3.12 10^3/uL (1.2-6.7); Basophils % 0.9 %; HCT 37.8 % (36.0-46.0); HGB 12.8 g/dL (11.2-15.7); Lymphocytes % 18.7 %; MCH 32.7 pg (27.0-33.0); MCHC 33.9 % (32.0-36.0); MCV 96 fL (80-95); Monocytes % 6.9 %; Neutrophils % 69.5 %; Platelet Count 221 10^3/uL (130-400); RBC 3.92 10^6/uL (3.93-5.22); RDW-SD 45.9 fL; WBC 4.49 10^3/uL (4.4-10.8)
[2024-03-24 13:08] LABS: Iron 74 ug/dL (50-170); Total Iron Binding Capacity 317 ug/dL (250-450); Transferrin Sat 23 % (15-50)
[2024-03-24 13:20] LABS: Ferritin 65 ng/mL (8-252)
[2024-03-27 13:49] LABS: Tissue Transglutaminase IgA <4.0 CU (<20.0)
[2024-03-28 15:15] LABS: Tissue Transglutaminase Ab IgG 1.9 U/mL
== END 2024-03-24 01:18 | disposition home or self-care (01) ==
LOC: LBO 01:17
PROVIDERS: PCP Nurse Practitioner Family; Visit Provider Nurse Practitioner Family
DX: D50.0 Iron deficiency anemia secondary to blood loss (chronic) (principal)
CPT/HCPCS: 36415; 86364; 82728; 83540; 83550; 85025

== ENCOUNTER 2024-08-25 01:01 | Outpatient (CLI) | payer MEDICARE, SELFPAY ==
[2024-08-25 09:10] LABS: Abs Immature Grans 0.01 10^3/uL (0.0-0.06); Absolute Basophil Count 0.05 10^3/uL (0.0-0.2); Absolute Eosinophil Count 0.11 10^3/uL (0.0-0.7); Absolute Lymphocyte Count 0.72 10^3/uL (1.2-3.4); Absolute Monocyte Count 0.36 10^3/uL (0.1-0.8); Absolute Neutrophil Count 4.21 10^3/uL (1.2-6.7); Basophils % 0.9 %; HCT 40.3 % (36.0-46.0); HGB 13.4 g/dL (11.2-15.7); Immature Grans % 0.2 %; Lymphocytes % 13.2 %; MCH 31.8 pg (27.0-33.0); MCHC 33.3 % (32.0-36.0); MCV 96 fL (80-95); MPV 9.3 fL (8.0-11.0); Monocytes % 6.6 %; Neutrophils % 77.1 %; Platelet Count 244 10^3/uL (130-400); RBC 4.22 10^6/uL (3.93-5.22); RDW 12.6 % (11.7-14.6); RDW-SD 44.5 fL; Reticulocyte 1.4 % (0.5-2.4); WBC 5.46 10^3/uL (4.4-10.8)
[2024-08-25 10:06] LABS: Iron 77 ug/dL (50-170); Total Iron Binding Capacity 330 ug/dL (250-450); Transferrin Sat 23 % (15-50)
[2024-08-25 10:20] LABS: Ferritin 63 ng/mL (8-252)
[2024-08-26 15:56] LABS: Tissue Transglutaminase IgA <4.0 CU (<20.0)
[2024-08-28 19:21] LABS: Tissue Transglutaminase Ab IgG 4.4 U/mL
== END 2024-08-25 01:02 | disposition home or self-care (01) ==
PROVIDERS: PCP Nurse Practitioner Family; Visit Provider Nurse Practitioner Family
DX: D50.0 Iron deficiency anemia secondary to blood loss (chronic) (principal); D50.8 Other iron deficiency anemias
CPT/HCPCS: 36415; 86364; 82728; 83540; 83550; 85025; 85045

== ENCOUNTER 2025-02-19 03:43 | Outpatient (CLI) | payer MEDICARE, SELFPAY ==
[2025-02-19 15:15] LABS: Abs Immature Grans 0.01 10^3/uL (0.0-0.06); HCT 39.3 % (36.0-46.0); HGB 13.2 g/dL (11.2-15.7); Immature Grans % 0.2 %; MCH 31.6 pg (27.0-33.0); MCHC 33.6 % (32.0-36.0); MCV 94 fL (80-95); MPV 9.7 fL (8.0-11.0); Platelet Count 223 10^3/uL (130-400); RBC 4.18 10^6/uL (3.93-5.22); RDW 12.8 % (11.7-14.6); RDW-SD 44.2 fL; WBC 4.13 10^3/uL (4.4-10.8)
[2025-02-19 17:01] LABS: Ferritin 76 ng/mL (8-252)
== END 2025-02-19 03:44 | disposition home or self-care (01) ==
LOC: LBO 03:43
PROVIDERS: PCP Nurse Practitioner Family; Visit Provider Nurse Practitioner Family
DX: D50.8 Other iron deficiency anemias (principal)
CPT/HCPCS: 36415; 82728; 85025

== ENCOUNTER 2025-05-20 00:26 | Observation (INO) | payer MEDICARE, SELFPAY ==
[2025-05-20] VITALS (68 sets, daily range): BP systolic 80–166; BP diastolic 44–85; PULSE 71–98; RESP 15–28; TEMP 36.4–37.5; O2SAT 74–98
--- NOTE | 2025-05-20 00:30 | DI.RAD_ITS ---
Exam(s) XR CHEST 2V PA LATERAL EXAM: XR CHEST 2V PA LATERAL CLINICAL HISTORY: Chest pain. TECHNIQUE: 2D digital imaging was performed. COMPARISON: CR XR CHEST 2V PA LATERAL from 12/23/[address] CHEST PE CTA from 05/20/2025 FINDINGS: 2 views: Chest leads in place. Heart size upper normal. Upper mediastinum unremarkable. There are increased markings in left lower lobe. Difficult to determine infiltrate versus prominent hiatal hernia versus combination of both. No obvious pleural effusions. IMPRESSION: Large hiatal hernia. Probable infiltrate also in the left lower lobe. DATA REPOSITORY: RADIATION DOSE DELIVERED:
--- NOTE | 2025-05-20 00:30 | RT.EKG_ITS ---
APPROVED REPORT Exam: Resting ECG Reason for Exam: Patient Location: E HR:88 bpm ECG Measurements Heart Rate 88 AXIS MS 176 P 57 QRSd 85 QRS 3 QT 361 T 9 QTc 436 Conclusion Sinus rhythm...normal P axis, V-rate 60- [address] segment or T wave abnormalities to suggest occlusive KS
--- NOTE | 2025-05-20 00:40 | W.ED.GENAD ---
Discharge Plan Disposition Condition: Good Discharge Details Chief Complaint: Chest Pain Clinical Impression: Chest pain, Hiatal hernia, Acid reflux Primary Care Provider: Óscar Bearden ED Provider: Deborah Hendricks Home Meds and New Rx's Prescriptions: New sucralfate [Carafate] 1 gram tablet 1 g PO BID Qty: 30 0RF famotidine 20 mg tablet 20 mg PO DAILY Qty: 15 0RF Continued ICaps AREDS2 250 mg-200 unit -12.5 mg-1 mg capsule 1 cap PO BID cyanocobalamin (vitamin B-12) 1,000 mcg capsule 1,000 mcg PO DAILY Qty: 90 3RF ferrous sulfate 325 mg (65 mg iron) tablet,delayed release (DR/EC) 325 mg PO DAILY Qty: 90 3RF Discharge Instructions Instructions: Hiatal Hernia (DC), Chest Pain, Adult ED Discharge Orders Other Ambulatory Orders: US extremity venous BI (Routine) Timeframe: 1 Day Facility: [facility] - Location: DIAGNOSTIC IMAGING Ordered By: Deborah Hendricks US extremity venous BI (Routine) Timeframe: 1 Day Facility: [facility] - Location: DIAGNOSTIC IMAGING Ordered By: Deborah Hendricks [facility] General Mode of arrival: ambulatory. Date/Time Provider Initiated Documentation: 05/20/25 00:29. Limitations to Documentation: no limitations. Information obtained by: patient. HPI Narrative: 69yo F with hx anemia, GERD, presenting for chest pain. Symptoms started about 24 hours ago; initially had left shoulder pain then rolled over and the pain moved in to her left chest. Pain has been persistent since then; it has gone away for 15-30 minutes at a time (typically when she is sitting still/resting) but then comes back when she gets up or moves. Over the past 24 hours it has changed into more of a dull subseternal chest heaviness, about an hour ago it began to radiate up into her neck and left shoulder again. It is not pleurtiic. Has never had anything like this before. Initially thought it was indigestion and has been burping a lot. Some nausea, no vomiting. No numbness, tingling, weakness, lightheadeness, syncope, back pain. No history of cardiac disease but family members with deaths from NM in 50's and 60's. Otherwise in her usual state of health with no fevers, chills, rash, abdominal pain, flank pain, shortness of breath, or other concerns. Related Data Home Medications ?Medication ?Instructions ?Recorded ?Confirmed vit C 250 mg-vit E 200 unit-zinc 1 cap PO BID 06/05/22 08/08/24 ox 12.5 [id number]-[id number]-[id number] capsule (ICaps AREDS2) cyanocobalamin (vitamin B-12) 1,000 mcg PO DAILY #90 caps 08/18/23 05/20/25 1,000 mcg capsule ferrous sulfate 325 mg (65 mg 325 mg PO DAILY #90 tabs 07/25/24 05/20/25 iron) tablet,delayed release famotidine 20 mg tablet 20 mg PO DAILY #15 tabs 05/20/25 sucralfate 1 gram tablet (Carafate) 1 g PO BID #30 tabs 05/20/25 Previous Rx's ?Medication ?Instructions ?Recorded cyanocobalamin (vitamin B-12) 1,000 mcg PO DAILY #90 caps 08/18/23 1,000 mcg capsule ferrous sulfate 325 mg (65 mg 325 mg PO DAILY #90 tabs 07/25/24 iron) tablet,delayed release famotidine 20 mg tablet 20 mg PO DAILY #15 tabs 05/20/25 sucralfate 1 gram tablet (Carafate) 1 g PO BID #30 tabs 05/20/25 Allergies Allergy/AdvReac Type Severity Reaction Status Date / Time tetanus toxoid, adsorbed Allergy Severe arm Verified 05/20/25 00:36 swelling, red streak down arm hydrocodone AdvReac Severe ? Verified 05/20/25 00:36 HYPOTENSION oxycodone AdvReac Intermediate NAUSEA/VOMI Verified 05/20/25 00:36 TING General Stated Complaint: Chest Pain JOHAN: 2 Review of Systems Narrative: see HPI Exam Narrative Exam Narrative: General: Alert, well appearing, well nourished, in no acute distress. Head: Normocephalic, atraumatic Neck: Trachea midline, ?Neck supple. ENT: ?MMM.? Cardiac: ?RRR, no murmurs appreciated. Equal radial pulses bilaterally. Resp: No respiratory distress. CTAB. Abd: ?Soft, non-distended, nontender : ?No suprapubic tenderness. No CVA tenderness. Extremities: ?No deformities.? No peripheral edema. Neurologic: GCS 15. ? Moves all extremities freely against gravity Course Vital Signs Vital signs: Vital Signs Pulse 87 05/20/25 00:33 Respiratory Rate 15 05/20/25 00:33 Blood Pressure 166/63 H 05/20/25 00:33 Pulse Oximetry 96 05/20/25 00:33 Pulse 87 05/20/25 00:33 Respiratory Rate 15 05/20/25 00:33 Blood Pressure 166/63 H 05/20/25 00:33 Blood Pressure Position Supine 05/20/25 00:33 Pulse Oximetry 96 05/20/25 00:33 Oxygen Delivery Method Room Air 05/20/25 00: Oxygen Flow Rate 0 05/20/25 00:33 Medical Decision Making 69yo F with hx anemia, GERD, presenting for chest pain. Symptoms started about 24 hours ago; initially had left shoulder pain then rolled over and the pain moved in to her left chest. Pain has been persistent since then; it has gone away for 15-30 minutes at a time (typically when she is sitting still/resting) but then comes back when she gets up or moves and now is more of a dull subseternal chest heaviness with some radiation up into her neck and left shoulder. Associated frequent belching and mild nausea. Hypertensive on arrival 160's/60's, vital signs otherwise reassuring. EKG NSR, appropriate intervals, no ST segment or T wave abnormalities to suggest occlusive NM or cornary artery dissection Given 325 of ASA for possible ACS. Trial of nitro; recieved two doses with no change in symptoms, after which she became transiently hypotensive. Subsequently given GI cocktail with good effect, significant decrease in pain level. Will workup broadly for chest pain with labs, CXR. No RUQ tenderness to suggest gallbladder pathology (cholecystitis, choledocolithiasis), equal radial pulses and history not suggestive of aortic disection, no CVA tenderness to suggest pyelenephrittis, not suggestive of esophgeal perforation or myocarditis, no rub or typical positional pattern to suggest pericarditits. -Labs reviewed as below, CBC reassuring with no leukocytosis or anemia, CMP with no actionable abnormalities, Mg normal, lipase not suggestive of pancreatitis, coags normal, dimer elevated at ~800 (will get CTA), BNP not suggestive of heart failure, initial troponin normal with one hour repeat with no significant change. -CXR independently reviiewed, no focal pneumonia or pneumothorax on my view, radiology read with large hiatial hernia. -CTA independently reviewed, no saddle PE on my view, radiology read below again with large hiatal hernia. On reassessment patient is well appearing wtih reassuring vital signs. She reports that her hiatal hernia is a known diagnosis but she does not recall it ever causing symptoms like this before. Given otherwise reassuring workup and improvement with GI cocktail, suspect this may be the utility driver of her presentation today. She reports her pain has now returned; will try carafate while awaiting results of third troponin. Third troponin also normal (7, 6, 5). On reassessment patient reports pain has much improved after carafate; still has mild substernal discomfort and no pain elsewhere Most likely symptoms are due to HH/GERD given results of workup and reassuring cardiac enzymes. Angina also possible (though not responsive to nitro and symptoms exacerbated more by movement/position in bed than clearly exertionall) and she does however have a moderate risk heart score (age, risk factors, history); discussed results with patient and based on [facility] pathway offered observation stay. After discussion of risks/benefits patient would prefer to go home and followup outpatient which is not unreasonable based on her reassuring workup here. Will get repeat EKG prior to discharge. Repeat EKG with some new ST changes, very slight elevations in I, aVL, V6, not suggestive of occlusive NM. Given this, more concern about ACS/unstable angina. [facility] [place] cardiology consulted. Will be signed out to oncoming physician, plan to followup cardiology reccs/possible transfer vs admission. IMPRESSION: Large hiatal hernia IMPRESSION: 1. No pulmonary embolism identified. 2. No pulmonary consolidation or pleural effusion. 3. Large hiatal hernia with most of the stomach located above the diaphragm. Lab Data Lab results reviewed: Yes I reviewed the patient's lab results. Labs: Laboratory Tests Range/Units 05/20/25 05/20/25 05/20/25 00:40 01:37 03:37 WBC (4.4-10.8) 10^3/uL 7.12 RBC (3.93-5.22) 10^6/uL 4.37 Hgb (11.2-15.7) g/dL 13.7 Hct (36.0-46.0) % 40.8 MCV (80-95) fL 93 MCH (27.0-33.0) pg 31.4 MCHC (32.0-36.0) % 33.6 RDW (11.7-14.6) % 12.4 Plt Count (130-400) 10^3/uL 209 MPV (8.0-11.0) fL 10.0 Immature Gran % % 0.1 Neutrophils % % 74.6 Lymphocytes % % 12.9 Monocytes % % 9.4 Eosinophils % % 2.4 Basophils % % 0.6 Nucleated RBC % (0.0-0.3) % 0.0 Absolute Neutrophils (1.2-6.7) 10^3/uL 5.31 Absolute Lymphocytes (1.2-3.4) 10^3/uL 0.92 L Absolute Monocytes (0.1-0.8) 10^3/uL 0.67 Absolute Eosinophils (0.0-0.7) 10^3/uL 0.17 Absolute Basophils (0.0-0.2) 10^3/uL 0.04 PT (9.1-11.1) sec 9.3 INR (0.9-1.1) 0.9 APTT (20.6-30.2) sec 27.0 D-Dimer (<500) ng/mlFEU 878 H Sodium (136-145) mmol/L 139 Potassium (3.5-5.1) mmol/L 3.9 Chloride (98-107) mmol/L 103 Carbon Dioxide (21.0-32.0) mmol/L 27.8 Anion Gap (3-11) mmol/L 8.2 BUN (7-18) mg/dL 22 H Creatinine (0.55-1.02) mg/dL 1.0 Est GFR (CKD-EPI 2020) (mL/min/1.73m2) 60.23 Glucose (74-106) mg/dL 115 H Calcium (8.5-10.1) mg/dL 9.1 Magnesium (1.8-2.4) mg/dL 2.2 Total Bilirubin (0.2-1.0) mg/dL 0.9 AST (15-37) U/L 19 ALT (14-59) U/L 24 Alkaline Phosphatase (46-116) U/L 130 H Troponin I (<or=51) ng/L 7 6 5 NT-Pro-B Natriuret Pep (<300) pg/mL 74 Total Protein (6.4-8.2) g/dL 7.2 Albumin (3.4-5.0) g/dL 3.7 Lipase (<78) U/L 25 PFSH All Active Problems (Updated 05/20/25 @ 04:23 by Deborah Hendricks MD) Acid reflux (Chronic) Hiatal hernia (Chronic) Chest pain (Acute) Iron deficiency anemia (Chronic) GERD with esophagitis (Chronic) Paraesophageal hernia (Chronic) Vitamin B12 deficiency (Chronic) MA (dyspnea on exertion) (Chronic) Sigmoid diverticulosis (Chronic) Medical History Hyperlipidemia Macular degeneration of both eyes Rosacea Surgical History S/P colonoscopy (~08/2023) biopsies S/P bunionectomy History of bilateral tubal ligation S/P anterior colporrhaphy Status post right knee replacement Status post left knee replacement Status post laparoscopic cholecystectomy (04/04/19) History of nasal septoplasty Family History Mother , 62 Heart disease Myocardial infarction Father , 80 Heart disease Sister Hypothyroidism Brother Essential hypertension Hyperlipidemia Brother Hyperlipidemia Maternal Grandfather , 54 Heart disease Paternal Grandfather , 79 Prostate cancer Maternal Grandmother , 96 No problems noted. Paternal Grandmother , 83 Diabetes Heart disease Son Asthma Daughter Asthma Daughter No problems noted. Brother No problems noted. Social History Smoking/Tobacco Use Status: Never Second Hand Exposure: Yes Smoking risk assessment performed?: Yes Alcohol Intake: current Alcohol Intake frequency: holidays/special occasions only Alcohol type: hard liquor Drug use: Never Substance use type: does not use Household members: spouse Housing: house Communication Needs: None Do you need help understanding health information?: Never Pets and animals: Yes Pets and animals: cat(s) Sexually active: Yes Do you think of yourself as: straight/heterosexual Current gender identity: male What is your relationship status?: How often do you talk on the phone with friends or family?: three or more times per week How often do you get together with friends or relatives?: three or more times per week How often do you attend anabaptist or voodoo services?: 1-3 times per year Do you belong to any clubs or organized social groups?: yes Panel score (0-1 are the most socially isolated patients): 3 What type of physical activity do you participate in: walking Duration: 15-30 minutes/day Frequency: 5-6 times per week Arianna/Sabianist: Spiritism Special arianna needs: No Seatbelt use: always Drive intox or ride w/intox utility driver: No Do you feel safe at home: Yes Do you feel safe in your relationship?: Yes
[2025-05-20 00:46] LABS: Abs Immature Grans 0.01 10^3/uL (0.0-0.06); HCT 40.8 % (36.0-46.0); HGB 13.7 g/dL (11.2-15.7); Immature Grans % 0.1 %; MCH 31.4 pg (27.0-33.0); MCHC 33.6 % (32.0-36.0); MCV 93 fL (80-95); MPV 10.0 fL (8.0-11.0); Platelet Count 209 10^3/uL (130-400); RBC 4.37 10^6/uL (3.93-5.22); RDW 12.4 % (11.7-14.6); RDW-SD 43.0 fL; WBC 7.12 10^3/uL (4.4-10.8)
[2025-05-20] MEDS: nitroGLYcerin 0.4 MG TAB SL ×2 (00:47→00:53)
[2025-05-20] MEDS: Aspirin 81 MG CHEW 324 MG CH (00:47)
[2025-05-20] MEDS: MYLANTA 30 ML, LIDOCAINE 2% VISCOUS UD 15 ML PO ×3 (00:48→15:11)
[2025-05-20 01:05] LABS: INR 0.9 (0.9-1.1); PTT Activated 27.0 sec (20.6-30.2); Prothrombin Time 9.3 sec (9.1-11.1)
--- NOTE | 2025-05-20 01:15 | DI.CT_ITS ---
Exam(s) CT CHEST PE CTA EXAM: CT CHEST PE CTA CLINICAL HISTORY: chest pain, + dimer. TECHNIQUE: Imaging Protocol: CT angiography of the chest was performed using pulmonary embolus protocol. Multi planar reconstructions were performed. CONTRAST MATERIAL: Intravenous: Omnipaque 350 Contrast volume: 100 cc COMPARISON: No exams were available for comparison FINDINGS: CHEST: PULMONARY ARTERIES: There are no intraluminal filling defects to suggest acute pulmonary emboli. LUNGS: Is some infiltrate in the posterior basal segment of the left lower lobe. Milder infiltrate in noted in the posterior basal segment of the right lower lobe. There are no pleural effusions.. MEDIASTINUM: There is no hilar nor mediastinal adenopathy. Visualized thyroid unremarkable.Large hiatal hernia CARDIAC: Heart size is upper normal. There is no pericardial effusion.Caliber of the thoracic aorta is within normal limits. No dissection. There is no significant shift of the interventricular septum. PARTIALLY VISUALIZED UPPERMOST ABDOMEN: No obvious findings OSSEOUS: No significant osseous lesions.No fractures. IMPRESSION: 1. No evidence of acute pulmonary emboli. No evidence of pulmonary infarction. 2. However, there is some infiltrate in posterior basal segment of the left lower lobe and a lesser amount of subpleural infiltrate in the posterior basal segment of the right lower lobe. There are no pleural effusions. Preliminary virtual Radiology report was reviewed. Final report called by myself to ER provider and the hospitalist 05/20/2025 at 6:56 p.m. and 6:59 p.m., respectively. RADIATION DOSE DELIVERED: 127.85mGy.cm Total DLP DATA REPOSITORY: All CT scans at this facility are submitted to the National Radiology Data Registry (NRDR) Dose Index Registry (DIR) with the [employer] (ACR). RADIATION OPTIMIZATION: All CT scans at this facility use at least one of these dose optimization techniques: automated exposure control; mA and/or kV adjustment per patient size (includes targeted exams where dose is matched to clinical indication); or iterative reconstruction.
[2025-05-20 01:16] LABS: D-Dimer 878 ng/mlFEU (<500)
[2025-05-20 01:20] LABS: ALT 24 U/L (14-59); AST 19 U/L (15-37); Albumin 3.7 g/dL (3.4-5.0); Alkaline Phosphatase 130 U/L (46-116); Anion Gap 8.2 mmol/L (3-11); BUN 22 mg/dL (7-18); Bilirubin, Total 0.9 mg/dL (0.2-1.0); CO2 27.8 mmol/L (21.0-32.0); Calcium 9.1 mg/dL (8.5-10.1); Chloride 103 mmol/L (98-107); Estimated GFR 60.23 (mL/min/1.73m2); Glucose 115 mg/dL (74-106); Lipase 25 U/L (<78); Magnesium 2.2 mg/dL (1.8-2.4); NT-proBNP 74 pg/mL (<300); Potassium 3.9 mmol/L (3.5-5.1); Sodium 139 mmol/L (136-145); Total Protein 7.2 g/dL (6.4-8.2); Troponin I 7 ng/L (<or=51)
[2025-05-20] MEDS: Normal Saline - Diluent 50 ML VIAL IJ (01:34)
[2025-05-20] MEDS: Omnipaque 350 MG/ML 100 ML BTL IJ (01:35)
[2025-05-20] MEDS: Normal Saline Flush 10 ML SYR IVP (01:35)
[2025-05-20 01:58] LABS: Troponin I 6 ng/L (<or=51)
--- NOTE | 2025-05-20 03:03 | DI.VRAD_ITS ---
PROCEDURE INFORMATION: Exam: CTA Chest With Contrast Exam date and time: 05/20/2025 1:52 AM Age: 69 years old Clinical indication: Other: Chest pain, + dimer TECHNIQUE: Imaging protocol: Computed tomographic angiography of the chest with contrast. Exam focused on the arteries. 3D rendering (Not supervised by radiologist): MIP and/or 3D reconstructed images were created by the technologist. Contrast material: OMNIPAQUE 350; Contrast volume: 100 ml; Contrast route: INTRAVENOUS (IV); COMPARISON: CR XR CHEST 2V PA LATERAL 05/20/2025 1:21 AM FINDINGS: Pulmonary arteries: No pulmonary embolism identified. Aorta: No thoracic aortic aneurysm or dissection. Thyroid: Thyroid gland partially excluded from view but grossly unremarkable through its visualized portion. Lungs: Streaky and dependent atelectasis. No pulmonary consolidation. Pleural spaces: No pleural effusion or pneumothorax. Heart: Normal-sized heart. Trace pericardial fluid. Lymph nodes: No pathologically enlarged mediastinal or hilar lymph nodes. Gallbladder and biliary ducts: Prior cholecystectomy. No biliary dilatation. Kidneys: Kidneys only partially included in the field of view. Parapelvic renal cysts on the left. Stomach: Large hiatal hernia with a maximum transverse dimension of 4.5 cm x 8.3 cm with most of the stomach located above the diaphragm. Bones/joints: Lower ribs partially excluded from view and incompletely evaluated. Otherwise, no acute fracture seen among the bones of the chest. Spinal degenerative change with osteophytes flowing along and partially fusing the anterior thoracic margin. Soft tissues: No gross soft tissue mass or fluid collection seen in the chest wall. IMPRESSION: 1. No pulmonary embolism identified. 2. No pulmonary consolidation or pleural effusion. 3. Large hiatal hernia with most of the stomach located above the diaphragm. Dictated and Authenticated by: Matteo Castano MD. Orderin Eladio Cabrera MD
--- NOTE | 2025-05-20 03:05 | DI.VRAD_ITS ---
PROCEDURE INFORMATION: Exam: XR Chest Exam date and time: 05/20/2025 1:21 AM Age: 69 years old Clinical indication: Pain; Chest pressure TECHNIQUE: Imaging protocol: Radiologic exam of the chest. Views: 2 views. COMPARISON: CR XR CHEST 2V PA LATERAL 12/23/2022 10:48 AM FINDINGS: Lungs: No pulmonary consolidation is seen. The left lower lung zone is obscured. Otherwise, no pulmonary consolidation is seen. Pleural spaces: The left lower lung zone is obscured. Otherwise, no pleural effusion or pneumothorax is demonstrated. Heart/Mediastinum: The heart appears normal in size. There is a large hiatal hernia projecting over the heart and left lower thorax. Bones/joints: There is an old right 8th rib fracture. IMPRESSION: Large hiatal hernia. Dictated and Authenticated by: Matteo Castano MD. Orderin Eladio Cabrera MD
[2025-05-20 04:03] LABS: Troponin I 5 ng/L (<or=51)
[2025-05-20] MEDS: Sucralfate 1 GM TAB PO ×4 (04:26→19:48)
--- NOTE | 2025-05-20 05:30 | RT.EKG_ITS ---
APPROVED REPORT Exam: Resting ECG Reason for Exam: chest pain Patient Location: E HR:76 bpm ECG Measurements Heart Rate 76 AXIS HI 204 P 29 QRSd 83 QRS 5 QT 375 T 11 QTc 422 Conclusion Sinus rhythm...normal P axis, V-rate 60- [address] elevation, lateral leads...ST >0.06mV, I aVL V5 V6 no ST segment or T wave abnormalities to suggest occlusive MO
--- NOTE | 2025-05-20 06:45 | RT.EKG_ITS ---
APPROVED REPORT Exam: Resting ECG Reason for Exam: chest pain Patient Location: E HR:86 bpm ECG Measurements Heart Rate 86 AXIS WV 165 P 52 QRSd 93 QRS 9 QT 365 T 2 QTc 438 Conclusion Sinus rhythm...normal P axis, V-rate 60- 99 Consider inferior infarct...Q >35mS in II III aVF no ST segment or T wave abnormalities to suggest occlusive MD
--- NOTE | 2025-05-20 07:50 | W.EDPROG ---
Date of service: 05/20/25 Time of Service: 07:51 Medical Decision Making Patient signed out to me pending cardiology consult. Spoke with Dr. Nicholson from cardiology at [facility] who reviewed the case and recommended observation until an echocardiogram could be done. They also excepted in transfer but advised that she likely would not be able to be transferred tomorrow and they said if we were able to get echo in the morning that was unremarkable she could be set up for an outpatient stress test rather than a transfer. They are aware we are unable to get an echo until tomorrow and they said this is reasonable as long as she can be observed in the hospital. Will discuss with hospitalist. Patient denies any chest pain now. ACcepting hockey instructor for potential transfer is Dr. Ross Discharge Plan Disposition Patient Disposition: Admit to [facility] Condition: Good Discharge Details Clinical Impression: Chest pain, Hiatal hernia, Acid reflux Admit Date/Time: 05/20/25 08:01 Admit Provider: Satish García Attending Provider: Satish García Primary Care Provider: Óscar Bearden ED Provider: Bandar Morrison
--- NOTE | 2025-05-20 08:02 | HPE_ITS ---
Date of service: 05/20/25 Time of Service: 08:02 Assessment and Plan Assessment and plan (1) Atypical chest pain: Status: Acute Assessment and plan: - Patient does have history of hiatal hernia however, left sided chest pain migrating to being substernal heaviness with radiation of the neck is concerning - Initial ED provider noted EKG changes in 1 and aVL which prompted [facility] [place] consultation - [facility] [place] excepted patient for transfer, though if echocardiogram is obtained prior to bed availability and does not show any wall motion abnormality is stated patient could be discharged with outpatient stress test ordered - Patient was given aspirin in the ED, [facility] [place] did not recommend heparin or Plavix - Will monitor patient on telemetry (2) Hiatal hernia: Status: Chronic Assessment and plan: - History of, may be contributing in patient's chest pain - Continue home PPI (3) Iron deficiency anemia: Status: Chronic Assessment and plan: - Continue home iron supplementation History of Present Illness History of Present Illness Chief Complaint: chest pain Narrative: 69-year-old female past medical history of lipidemia, GERD and hiatal hernia who presents to the emergency department chest pain. Patient states that symptoms started about 24 hours prior to presenting to the emergency department. She states pain started in her left shoulder and migrated to her left chest with the pain being persistent since that time the exception of having on the way for 15 to 30 minutes at a time usually when sitting still or at rest with the pain returning with ambulation. She also states that over those 24 hours the pain has changed to a dull substernal heaviness an hour prior to presenting to the emergency department it radiated up her neck and the left shoulder. She denies having had any pain or sensation like this before, but she stated this initially was thought to have been indigestion but she denies nausea or vomiting. She also denies any weakness, lightheadedness, dizziness. In the emergency department patient was noted as having normal vital signs, normal CBC, normal CMP MP, 3 times negative troponins but emergency room provider of patient patient had some EKG changes in leads I and aVL. Patient was given aspirin, as well as nitro and GI cocktail which did not improve symptoms slightly. However, [facility] [place] cardiology was consulted given concerns for EKG changes they accepted patient for transfer though did not recommend heparin or Plavix. They did recommend however obtaining echocardiogram tomorrow, and if echo was obtained prior to bed availability for transfer and no regional wall motion abnormalities were detected patient could have outpatient stress test. Which time emergency room provider paged hospitalist for admission for patient with atypical chest pain. Review of Systems All systems reviewed & are unremarkable except as noted in HPI and below PFSH All Active Problems (Updated 05/20/25 @ 08:40 by SASKIA NÚÑEZ) Atypical chest pain (Acute) Acid reflux (Chronic) Hiatal hernia (Chronic) Chest pain (Acute) Iron deficiency anemia (Chronic) GERD with esophagitis (Chronic) Paraesophageal hernia (Chronic) Vitamin B12 deficiency (Chronic) MA (dyspnea on exertion) (Chronic) Sigmoid diverticulosis (Chronic) Medical History Hyperlipidemia Macular degeneration of both eyes Rosacea Surgical History S/P colonoscopy (~08/2023) biopsies S/P bunionectomy History of bilateral tubal ligation S/P anterior colporrhaphy Status post right knee replacement Status post left knee replacement Status post laparoscopic cholecystectomy (04/04/19) History of nasal septoplasty Family History Mother , 62 Heart disease Myocardial infarction Father , 80 Heart disease Sister Hypothyroidism Brother Essential hypertension Hyperlipidemia Brother Hyperlipidemia Maternal Grandfather , 54 Heart disease Paternal Grandfather , 79 Prostate cancer Maternal Grandmother , 96 No problems noted. Paternal Grandmother , 83 Diabetes Heart disease Son Asthma Daughter Asthma Daughter No problems noted. Brother No problems noted. Social History Smoking/Tobacco Use Status: Never Second Hand Exposure: Yes Smoking risk assessment performed?: Yes Alcohol Intake: current Alcohol Intake frequency: holidays/special occasions only Alcohol type: hard liquor Drug use: Never Substance use type: does not use Household members: spouse Housing: house Communication Needs: None Do you need help understanding health information?: Never Pets and animals: Yes Pets and animals: cat(s) Sexually active: Yes Do you think of yourself as: straight/heterosexual Current gender identity: male What is your relationship status?: How often do you talk on the phone with friends or family?: three or more times per week How often do you get together with friends or relatives?: three or more times per week How often do you attend voodoo or pentecostal services?: 1-3 times per year Do you belong to any clubs or organized social groups?: yes Panel score (0-1 are the most socially isolated patients): 3 What type of physical activity do you participate in: walking Duration: 15-30 minutes/day Frequency: 5-6 times per week Arianna/Hindu: Baptist Special arianna needs: No Seatbelt use: always Drive intox or ride w/intox driver/guide: No Do you feel safe at home: Yes Do you feel safe in your relationship?: Yes Meds Allergies and Home Medications Allergies Allergy/AdvReac Type Severity Reaction Status Date / Time tetanus toxoid, adsorbed Allergy Severe arm Verified 05/20/25 00:36 swelling, red streak down arm hydrocodone AdvReac Severe ? Verified 05/20/25 00:36 HYPOTENSION oxycodone AdvReac Intermediate NAUSEA/VOMI Verified 05/20/25 00:36 TING Home Medications ?Medication ?Instructions ?Recorded ?Confirmed ?Type vit C 250 mg-vit E 200 unit-zinc 1 cap PO BID 06/05/22 05/20/25 History ox 12.5 pu-[id number] capsule (ICaps AREDS2) cyanocobalamin (vitamin B-12) 1,000 mcg PO DAILY #90 c aps 08/18/23 05/20/25 Rx 1,000 mcg capsule ferrous sulfate 325 mg (65 mg 325 mg PO DAILY #90 tabs 07/25/24 05/20/25 Rx iron) tablet,delayed release famotidine 20 mg tablet 20 mg PO DAILY #15 tabs 01/07 Rx ferrous sulfate 325 mg (65 mg 325 mg PO DAILY 05/20/25 05/20/25 History iron) tablet (FeroSul) sucralfate 1 gram tablet (Carafate) 1 g PO BID #30 tab s 05/20/25 Rx Exam Narrative Exam Narrative: Appearing older female sitting up in the chair no acute distress, ANO x 4, heart regular rhythm, lungs clear to auscultation bilaterally, abdomen soft, nontender, nondistended Results Labs 05/20/25 00:40 05/20/25 00:40 Labs: Laboratory Results - last 24 hr 05/20/25 05/20/25 05/20/25 00:40 01:37 03:37 WBC 7.12 RBC 4.37 Hgb 13.7 Hct 40.8 MCV 93 MCH 31.4 MCHC 33.6 RDW 12.4 Plt Count 209 MPV 10.0 Immature Gran % 0.1 Neutrophils % 74.6 Lymphocytes % 12.9 Monocytes % 9.4 Eosinophils % 2.4 Basophils % 0.6 Nucleated RBC % 0.0 Absolute Neutrophils 5.31 Absolute Lymphocytes 0.92 L Absolute Monocytes 0.67 Absolute Eosinophils 0.17 Absolute Basophils 0.04 PT 9.3 INR 0.9 APTT 27.0 D-Dimer 878 H Sodium 139 Potassium 3.9 Chloride 103 Carbon Dioxide 27.8 Anion Gap 8.2 BUN 22 H Creatinine 1.0 Est GFR (CKD-EPI 2020) 60.23 Glucose 115 H Calcium 9.1 Magnesium 2.2 Total Bilirubin 0.9 AST 19 ALT 24 Alkaline Phosphatase 130 H Troponin I 7 6 5 NT-Pro-B Natriuret Pep 74 Total Protein 7.2 Albumin 3.7 Lipase 25 Last Vital Signs Temp 97.5 F L 05/20/25 00:33 Pulse 84 05/20/25 06:20 Resp 22 05/20/25 06:20 BP 121/62 05/20/25 06:16 Pulse Ox 95 05/20/25 06:20 Time Spent Time spent with Patient: >75 minutes Time was spent: preparing to see the patient(eg.review tests), obtaining and/or reviewing separately otained hiistory, ordering medications,tests, procedures, referring, communicating with other health medicare interviewer, indepentently interpreting results, counseling the patient and care coordination
--- NOTE | 2025-05-20 08:26 | W.PC.ACHO ---
Registration Status: REG ER Primary Language: Preferred Language: Chinese ED Information & Data Chief Complaint Chest Pain 05/20/25 00:45 Triage Note Pt reports last shoulder 05/20/25 00:33 pain which began 24 hrs ago, progressed to substernal pain with left arm pressure and nausea. No cardiac hx, never had pain like this before. Medical / Surgical History (Last Reviewed 08/08/24 @ 10:48 by Óscar Garcia NP) Hyperlipidemia Macular degeneration of both eyes Rosacea (Last Reviewed 08/08/24 @ 10:48 by Óscar Garcia NP) S/P colonoscopy (~08/2023) S/P bunionectomy History of bilateral tubal ligation S/P anterior colporrhaphy Status post right knee replacement Status post left knee replacement Status post laparoscopic cholecystectomy (04/04/19) History of nasal septoplasty Most Recent Vital Signs Temperature 36.4 C L 05/20/25 00:33 Temperature Source Tympanic 05/20/25 00:33 Pulse 84 05/20/25 06:20 Pulse 84 05/20/25 06:20 Respiratory Rate 22 05/20/25 06:20 Respiratory Effort Normal, Non-Labored 05/20/25 00:56 Respiratory Depth Normal 05/20/25 00:56 Respiratory Pattern Normal 05/20/25 00:56 Blood Pressure 121/62 05/20/25 06:16 Blood Pressure Mean 82 05/20/25 06:16 Blood Pressure Position Supine 05/20/25 00:33 Pulse Oximetry 95 05/20/25 06:20 Oxygen Delivery Method Room Air 05/20/25 00:33 Oxygen Flow Rate 0 05/20/25 00:33 Pain Level 3 05/20/25 00:58 Comment third nitro held 05/20/25 01:03 Allergies tetanus toxoid, adsorbed Allergy (Severe, Verified 05/20/25 00:36) arm swelling, red streak down arm hydrocodone Adverse Reaction (Severe, Verified 05/20/25 00:36) ? HYPOTENSION oxycodone Adverse Reaction (Intermediate, Verified 05/20/25 00:36) NAUSEA/VOMITING Active Medications Generic Name Dose Route Start Last Admin Trade Name Freq PRN Reason Stop Dose Admin Iohexol 100 ml 05/20/25 01:45 05/20/25 01:35 Omnipaque 350 Mg/Ml 100 Ml Btl IJ 06/19/25 23:59 100 ml DIRECTED YAZAN Administration Nitroglycerin 0.4 mg 05/20/25 00:39 05/20/25 00:53 Nitroglycerin 0.4 Mg Tab SL 0.4 mg Q5 MIN PRN X3 PRN Administration Sodium Chloride 0 ml 05/20/25 01:33 05/20/25 01:35 Normal Saline Flush 10 Ml Syr IVP 10 ml PRN PRN Administration Sodium Chloride 50 ml 05/20/25 01:45 05/20/25 01:34 Normal Saline - Diluent 50 Ml Vial IJ 50 ml DIRECTED YAZAN Administration IV IV Catheter Type [Right Saline Lock Antecubital] IV Catheter Gauge [Right 18 Antecubital] Diagnostics 05/20/25 05/20/25 05/20/25 Range/Units 03:37 01:37 00:40 WBC 7.12 (4.4-10.8) 10^3/uL RBC 4.37 (3.93-5.22) 10^6/uL Hgb 13.7 (11.2-15.7) g/dL Hct 40.8 (36.0-46.0) % MCV 93 (80-95) fL MCH 31.4 (27.0-33.0) pg MCHC 33.6 (32.0-36.0) % RDW 12.4 (11.7-14.6) % Plt Count 209 (130-400) 10^3/uL MPV 10.0 (8.0-11.0) fL Immature Gran % 0.1 % Neutrophils % 74.6 % Lymphocytes % 12.9 % Monocytes % 9.4 % Eosinophils % 2.4 % Basophils % 0.6 % Nucleated RBC % 0.0 (0.0-0.3) % Absolute Neutrophils 5.31 (1.2-6.7) 10^3/uL Absolute Lymphocytes 0.92 L (1.2-3.4) 10^3/uL Absolute Monocytes 0.67 (0.1-0.8) 10^3/uL Absolute Eosinophils 0.17 (0.0-0.7) 10^3/uL Absolute Basophils 0.04 (0.0-0.2) 10^3/uL PT 9.3 (9.1-11.1) sec INR 0.9 (0.9-1.1) APTT 27.0 (20.6-30.2) sec D-Dimer 878 H (<500) ng/mlFEU Sodium 139 (136-145) mmol/L Potassium 3.9 (3.5-5.1) mmol/L Chloride 103 (98-107) mmol/L Carbon Dioxide 27.8 (21.0-32.0) mmol/L Anion Gap 8.2 (3-11) mmol/L BUN 22 H (7-18) mg/dL Creatinine 1.0 (0.55-1.02) mg/dL Est GFR (CKD-EPI 2020) 60.23 (mL/min/1.73m2) Glucose 115 H (74-106) mg/dL Calcium 9.1 (8.5-10.1) mg/dL Magnesium 2.2 (1.8-2.4) mg/dL Total Bilirubin 0.9 (0.2-1.0) mg/dL AST 19 (15-37) U/L ALT 24 (14-59) U/L Alkaline Phosphatase 130 H (46-116) U/L Troponin I 5 6 7 (<or=51) ng/L NT-Pro-B Natriuret Pep 74 (<300) pg/mL Total Protein 7.2 (6.4-8.2) g/dL Albumin 3.7 (3.4-5.0) g/dL Lipase 25 (<78) U/L Intake and Output - 24 Hour Total 05/20/25 00:26 thru 05/20/25 00:33 Weight 103.056 kg Falls Risk Assessment History of Falls No History 05/20/25 00:56 Contributing Factors No Factors 05/20/25 00:56 Ambulatory Aids Independent 05/20/25 00:56 Tubes/Lines None 05/20/25 00:56 Gait Evaluation No gait disturbance 05/20/25 00:56 Cognition No cognitive impairment 05/20/25 00:56 Fall Total Score 0 05/20/25 00:56 Level of Risk Standard/Low Risk 05/20/25 00:56 Problems (Last Reviewed 08/08/24 @ 10:48 by Óscar Garcia NP) Atypical chest pain (Acute) Hiatal hernia (Chronic) Iron deficiency anemia (Chronic) v v v v v v v v v Sending and/or Receiving Nurses: Please use comment section below to note any information pertinent to the patient hand-off not included above. Information / Comments: report received, all questions answered. Report received from: LENNIE Guerrero @ [phone]
[2025-05-20] MEDS: Ferrous Sulfate 325 MG TAB PO (08:55)
--- NOTE | 2025-05-20 13:09 | PHA.REVIEW2 ---
Pharmacy Admission Review Admission Clinical Review Admission Pharmacy Review: Atypical chest pain (Acute) tetanus toxoid, adsorbed Allergy (Severe, Verified 05/20/25 00:36) arm swelling, red streak down arm hydrocodone Adverse Reaction (Severe, Verified 05/20/25 00:36) ? HYPOTENSION oxycodone Adverse Reaction (Intermediate, Verified 05/20/25 00:36) NAUSEA/VOMITING Resuscitation Status DNR/DNI Height 5 ft 7 in Weight 103.056 kg Comments Comments/Follow Ups: Possible [facility] [place] transfer pending bed Pharmacy Admission Review Renal Dosing Renal Dosing: BUN 22 mg/dL (7-18) H 05/20/25 00:40 Creatinine 1.0 mg/dL (0.55-1.02) 05/20/25 00:40 Medications needing adjustments: Reviewed (CrCl 63.69 mL/min) List of meds needing interventions: Current medications are okay Anticoagulation Anticoagulation: Hgb 13.7 g/dL (11.2-15.7) 05/20/25 00:40 Hct 40.8 % (36.0-46.0) 05/20/25 00:40 Plt Count 209 10^3/uL (130-400) 05/20/25 00:40 INR 0.9 (0.9-1.1) 05/20/25 00:40 Creatinine 1.0 mg/dL (0.55-1.02) 05/20/25 00:40 DVT Prophylaxis: Intervened (none ordered, verified with provider does not want any at this time) Relevant Labs Relevant Labs: Sodium 139 mmol/L (136-145) 05/20/25 00:40 Potassium 3.9 mmol/L (3.5-5.1) 05/20/25 00:40 Chloride 103 mmol/L (98-107) 05/20/25 00:40 Magnesium 2.2 mg/dL (1.8-2.4) 05/20/25 00:40 Electrolytes, C-Reactive P, ESR: Reviewed Cardiac Review Cardiac Review: Troponin I 5 ng/L (<or=51) 05/20/25 03:37 NT-Pro-B Natriuret Pep 74 pg/mL (<300) 05/20/25 00:40 BP, HR, EF%: Reviewed (BP and HR WNL) QTc Review QTc: Reviewed (438 from 05/20/25) IV to PO Switch IV Medications: Reviewed Home Meds Home Med List reviewed: Reviewed Relevent Home Meds Not ordered & why?: vitamin B12 and ICaps multivitamin Current Meds Current Medication Order Review: Reviewed Comments Comments/Follow Ups: Possible [facility] [place] transfer pending bed
--- NOTE | 2025-05-20 14:45 | RT.EKG_ITS ---
APPROVED REPORT Exam: Resting ECG Reason for Exam: chest pain Patient Location: I HR:84 bpm ECG Measurements Heart Rate 84 AXIS OK 187 P 36 QRSd 88 QRS 9 QT 363 T 2 QTc 430 Conclusion Sinus rhythm...normal P axis, V-rate 50- 99 Nondiagnostic inferior Q waves...Qs add to 80 mS in II III aVF Diffuse ST elevation, consider pericarditis
[2025-05-20] MEDS: Heparin in 0.45% NaCl 25,000 UNIT/250 ML BAG 10 UNIT IVINF (15:40)
[2025-05-20 15:44] LABS: Troponin I 7 ng/L (<or=51)
[2025-05-20] MEDS: Pantoprazole 40 MG TABCR PO ×2 (16:23→19:48)
[2025-05-20] MEDS: cefTRIAXone 1,000 MG in Normal Saline 50 ML 100 MG IVPB (19:48)
[2025-05-20] MEDS: AZITHROMYCIN 500 MG in Normal Saline 250 ML 250 MG IVPB (21:10)
[2025-05-21 02:21] LABS: COVID-19 PCR Negative (Negative); RSV PCR Negative (Negative)
[2025-05-21 02:49] VITALS: BP 120/62; PULSE 78; RESP 17; TEMP 36.6; O2SAT 92
[2025-05-21 06:36] LABS: HCT 34.2 % (36.0-46.0); HGB 11.4 g/dL (11.2-15.7); MCH 31.2 pg (27.0-33.0); MCHC 33.3 % (32.0-36.0); MCV 94 fL (80-95); MPV 10.1 fL (8.0-11.0); Platelet Count 161 10^3/uL (130-400); RBC 3.65 10^6/uL (3.93-5.22); RDW 13.0 % (11.7-14.6); RDW-SD 44.7 fL; WBC 6.48 10^3/uL (4.4-10.8)
[2025-05-21 06:49] LABS: Anion Gap 8.5 mmol/L (3-11); BUN 14 mg/dL (7-18); CO2 25.5 mmol/L (21.0-32.0); Calcium 8.6 mg/dL (8.5-10.1); Chloride 105 mmol/L (98-107); Estimated GFR 68.35 (mL/min/1.73m2); Glucose 97 mg/dL (74-106); Magnesium 2.3 mg/dL (1.8-2.4); Potassium 3.8 mmol/L (3.5-5.1); Sodium 139 mmol/L (136-145)
[2025-05-21 08:25] VITALS: BP 124/59; PULSE 80; RESP 17; TEMP 36.7; O2SAT 93
[2025-05-21] MEDS: Pantoprazole 40 MG TABCR PO (08:51)
[2025-05-21] MEDS: Ferrous Sulfate 325 MG TAB PO (08:52)
[2025-05-21 10:22] LABS: Procalcitonin 0.10 ng/mL
[2025-05-21 11:04] VITALS: BP 134/65; PULSE 84; RESP 17; TEMP 37; O2SAT 94
--- NOTE | 2025-05-21 11:17 | W.PM.DS.N ---
Date of service: 05/21/25 Time of Service: 11:17 DS: Diagnosis Discharge Diagnosis (1) Atypical chest pain: Status: Acute (2) Hiatal hernia: Status: Chronic (3) Iron deficiency anemia: Status: Chronic Discharge Plan Disposition Patient Disposition: Home Condition: Good Discharge Details Reason For Visit: Atypical Chest Pain Admit Date/Time: 05/20/25 08:01 Admit Provider: Satish García Attending Provider: Satish García Primary Care Provider: Óscar Bearden Hospital Course Hospital Course: Patient initially presented with atypical chest pain concerning for ACS versus GI discomfort secondary to hiatal hernia. Case was discussed with [facility] cardiology on admission and they recommended telemetry monitoring and echocardiogram, and if echocardiogram did not show any regional wall motion abnormalities states that the patient to be discharged home with outpatient nuclear stress test. Patient did in fact have a normal echocardiogram as well as complete resolution of her symptoms we treated her for GI discomfort with Carafate and initiation of PPI. Given the patient's symptoms had improved and her echocardiogram was normal and was determined that she was stable for discharge home and will have referral to cardiology for nuclear stress test. Home Meds and New Rx's Prescriptions: New sucralfate [Carafate] 1 gram tablet 1 g PO BID Qty: 30 0RF famotidine 20 mg tablet 20 mg PO DAILY Qty: 15 0RF pantoprazole 40 mg Tablet,Delayed Release (Dr/Ec) 40 mg PO BID@30,1999 Qty: 90 0RF Continued ICaps AREDS2 250 mg-200 unit -12.5 mg-1 mg capsule 1 cap PO BID cyanocobalamin (vitamin B-12) 1,000 mcg capsule 1,000 mcg PO DAILY Qty: 90 3RF ferrous sulfate [FeroSul] 325 mg (65 mg iron) tablet 325 mg PO DAILY Patient Comments: TAKE 1 TABLET BY MOUTH EVERY DAY Discharge Instructions Instructions: Hiatal Hernia (DC), Chest Pain, Adult ED Activity:: Activity as Tolerated Equipment/Supplies:: No Equipment Needed Diet:: As Tolerated Discharge Orders Discharge Orders: Discharge Order (Routine); Ordered 05/21/25 Ordered By: Satish García Other Ambulatory Orders: NM MPI rest & stress grp (Routine) Timeframe: 10 Day Facility: [facility] - Location: DIAGNOSTIC IMAGING Ordered By: Satish García DS: Summary Time Spent with Patient providing and/or coordinating discharge services: Greater than 30 minutes Status at Discharge Functional status at discharge: independent ambulation Overall status at discharge: patient is back to baseline Mental Status: mental status grossly normal Speech and Movement: speech and movement normal Mood: congruent mood Affect: normal affect Exam Narrative Exam Narrative: Appearing older female sitting up in the chair no acute distress, ANO x 4, heart regular rhythm, lungs clear to auscultation bilaterally, abdomen soft, nontender, nondistended Psych Mental Status: mental status grossly normal Speech and Movement: speech and movement normal Mood: congruent mood Affect: normal affect DS: Data Vitals/I&O Vitals and I&O: Vital Signs Temperature 98.6 F 05/21/25 11:04 Temperature Source Temporal Artery Scan 05/21/25 11:04 Pulse 84 05/21/25 11:04 Pulse Rhythm Regular 05/20/25 08:58 Pulse 84 05/20/25 06:20 Respiratory Rate 17 05/21/25 11:04 Respiratory Effort Normal, Non-Labored 05/20/25 08:58 Respiratory Depth Normal 05/20/25 08:58 Respiratory Pattern Normal 05/20/25 08:58 Blood Pressure 134/65 05/21/25 11:04 Blood Pressure Mean 88 05/21/25 11:04 Blood Pressure Position Supine 05/20/25 00:33 Pulse Oximetry 94 05/21/25 11:04 Oxygen Delivery Method Room Air 05/21/25 11:04 Oxygen Flow Rate 0 05/21/25 11:04 Pain Level 0 05/21/25 11:04 Comment third nitro held 05/20/25 01:03 Intake & Output 05/20/25 05/21/25 05/21/25 17:59 05:59 17:59 Intake Total 403.5 / 403.5 820 / 1223.5 Balance 403.5 / 403.5 820 / 1223.5 Intake: IV 3.5 / 3.5 320 / 323.5 Oral 400 / 400 500 / 900 Other: Urine Color Yellow Yellow Urine Appearance Clear Urine Odor Normal Comment Pt voided independently to toilet Stool Size Moderate Stool Characteristics Soft Brown Data Completed and Pending Labs on day of discharge: Labs from last 24 hours 05/21/25 05/21/25 05/20/25 06:15 00:29 15:15 WBC 6.48 RBC 3.65 L Hgb 11.4 D Hct 34.2 L MCV 94 MCH 31.2 MCHC 33.3 RDW 13.0 Plt Count 161 MPV 10.1 Sodium 139 Potassium 3.8 Chloride 105 Carbon Dioxide 25.5 Anion Gap 8.5 BUN 14 Creatinine 0.9 Est GFR (CKD-EPI 2020) 68.35 Glucose 97 Calcium 8.6 Magnesium 2.3 Troponin I 7 Procalcitonin 0.10 Adenovirus DNA Pending COVID-19 Source Nasopharynx SARS-CoV-2 (PCR) Negative Human Metapneumovir RNA Pending Influenza Type A (PCR) Negative Influenza Type B (PCR) Negative Parainfluenza 1 (PCR) Pending Parainfluenza 2 (PCR) Pending Parainfluenza 3 (PCR) Pending Parainfluenza 4 (PCR) Pending RSV (PCR) Negative Resp Viral Spec Desc Pending Rhinovirus (PCR) Pending PFSH All Active Problems (Updated 05/20/25 @ 08:40 by SASKIA NÚÑEZ) Atypical chest pain (Acute) Acid reflux (Chronic) Hiatal hernia (Chronic) Chest pain (Acute) Iron deficiency anemia (Chronic) GERD with esophagitis (Chronic) Paraesophageal hernia (Chronic) Vitamin B12 deficiency (Chronic) MA (dyspnea on exertion) (Chronic) Sigmoid diverticulosis (Chronic) Medical History Hyperlipidemia Macular degeneration of both eyes Rosacea Surgical History S/P colonoscopy (~08/2023) biopsies S/P bunionectomy History of bilateral tubal ligation S/P anterior colporrhaphy Status post right knee replacement Status post left knee replacement Status post laparoscopic cholecystectomy (04/04/19) History of nasal septoplasty Family History Mother , 62 Heart disease Myocardial infarction Father , 80 Heart disease Sister Hypothyroidism Brother Essential hypertension Hyperlipidemia Brother Hyperlipidemia Maternal Grandfather , 54 Heart disease Paternal Grandfather , 79 Prostate cancer Maternal Grandmother , 96 No problems noted. Paternal Grandmother , 83 Diabetes Heart disease Son Asthma Daughter Asthma Daughter No problems noted. Brother No problems noted. Social History Smoking/Tobacco Use Status: Never Second Hand Exposure: Yes Smoking risk assessment performed?: Yes Alcohol Intake: current Alcohol Intake frequency: holidays/special occasions only Alcohol type: hard liquor Drug use: Never Substance use type: does not use Household members: spouse Housing: house Communication Needs: None Do you need help understanding health information?: Never Pets and animals: Yes Pets and animals: cat(s) Sexually active: Yes Do you think of yourself as: straight/heterosexual Current gender identity: male What is your relationship status?: How often do you talk on the phone with friends or family?: three or more times per week How often do you get together with friends or relatives?: three or more times per week How often do you attend moravian or sikhism services?: 1-3 times per year Do you belong to any clubs or organized social groups?: yes Panel score (0-1 are the most socially isolated patients): 3 What type of physical activity do you participate in: walking Duration: 15-30 minutes/day Frequency: 5-6 times per week Arianna/Orthodoxy: Restoration Special arianna needs: No Seatbelt use: always Drive intox or ride w/intox laborer driver: No Do you feel safe at home: Yes Do you feel safe in your relationship?: Yes Time Spent with Patient Time Spent with Patient: <45 minutes Time was spent: preparing to see the patient(eg.review tests), obtaining and/or reviewing separately otained hiistory, ordering medications,tests, procedures, referring, communicating with other health post anesthesia care unit nurse, indepentently interpreting results, counseling the patient and care coordination
--- NOTE | 2025-05-21 11:39 | CMDISCH_ITS ---
Date of service: 05/21/25 Time of Service: 11:40 LACE Index Scoring Tool Questions: Length of Stay (in days): 1 Was the patient admitted via the E.D.?: Yes E.D. Visits: 1 Answers: Total Score: 5 Risk of Readmission: Low Risk Care Management Discharge Plan Reason for Hospitalization: Atypical chest pain Discharge Plan: Norah will be discharged home with no new services indicated. It is recommended she follow up with her community providers, cardiology for a nuclear stress test and discharge plan of care. She will transport via private vehicle. Patient/Family Education Needs: Review of discharge instruction, activity, limit ations, and plan of care. Discuss ask me three
[2025-05-21 23:41] LABS: Adenovirus DNA Result Negative (Negative); Metapneumovirus RNA Result Negative (Negative); Parainfluenza Type1 RNA Result Negative (Negative); Parainfluenza Type2 RNA Result Negative (Negative); Parainfluenza Type3 RNA Result Negative (Negative); Parainfluenza Type4 RNA Result Negative (Negative); Rhinovirus RNA Result Negative (Negative)
== END 2025-05-21 12:09 | disposition home or self-care (01) ==
LOC: ER 08:23 → MS 09:12
PROVIDERS: Hospitalist; Student in an Organized Health Care Education/Training Program; Admitting Provider Family Medicine; Emergency Provider Emergency Medicine; PCP Nurse Practitioner Family; Responsible Provider Family Medicine; Visit Provider Family Medicine
DX: R07.89 Other chest pain (principal); J18.9 Pneumonia, unspecified organism; D50.9 Iron deficiency anemia, unspecified; K44.9 Diaphragmatic hernia without obstruction or gangrene; R94.31 Abnormal electrocardiogram [ECG] [EKG]; K21.9 Gastro-esophageal reflux disease without esophagitis; E53.8 Deficiency of other specified B group vitamins; K57.30 Diverticulosis of large intestine without perforation or abscess without bleeding; E78.5 Hyperlipidemia, unspecified; L71.9 Rosacea, unspecified
CPT/HCPCS: 00123; 36415; 71275; 80048; 80053; 83690; 84145; 85027; 87632; 87637; 93005; 99285; 71046; 83735; 83880; 84484; 85025; 85379; 85610; 85730; 93010; 93306; 99223; 99238; G0378; J0456; J0696; J1644; J3490